=== PATIENT | female | born 1975 | race Caucasian/White ===

== ENCOUNTER 2016-06-24 12:23 | Emergency (ER) | payer OTHER ==
[~2016-06-24] VITALS: Ht 175.3 cm; Wt 147.4 kg
[~2016-06-24 12:23] MED LIST: ALBUTEROL 3 ML3 ML INH; ALBUTEROL SULFAT3 M1 INH; ALPRAZOLAM2 MG PO; AMOXIL500 MG PO; ATROVENT 0.02%2.5 ML INH; AUGMENTIN 875-1 EACH PO; BIAXIN FILMTAB500 MG PO; CHERATUSSIN AC480 ML PO; DUONEB 3 MG/3 ML3 ML INH/SOL; FISH OIL CONCEN1 SGL PO; FLONASE120 SPRAY/ NASB; GLUCOPHAGE1000 M1 PO; HYOSCYAMINE0.125 M2; IBU800 MG PO; IBUPROFEN800 MG PO; LEVAQUIN500 MG PO; LEVSIN/SL0.125 MG SL; LIPITOR40 M1 PO; LISINOPRIL40 MG PO; MULTIPLE VITAM1 EAC2 PO; NYSTOP100000 U/G TOP; OXYCODONE HCL30 MG PO; PREDNISOLO15 MG/5 M4 PO; PREDNISONE10 MG PO; PROAIR HFA0.09 MG/Ac INH; ROBITUSSIN W/CO10 ML PO; TOPROL XL200 MG PO; ZITHROMAX TRI-500 MG PO; ZOFRAN4 M1 SL
--- NOTE | 2016-06-24 12:59 | ED GENERAL ADULT ---
History of Present Illness General Chief Complaint: General Adult Stated Complaint: "UM MY DOCTOR STOP GIVING ME PAIN PILLS" Source: patient, old records Exam Limitations: no limitations Vital Signs & Intake/Output Vital Signs & Intake/Output Vital Signs Date Time Temp Pulse Resp B/P Pulse O2 O2 Flow FiO2 Ox Delivery Rate 06/24 1444 97.2 80 21 158/79 93 Room Air 06/24 1350 95 06/24 1331 98 Room Air 06/24 1230 97.0 76 20 163/81 94 Room Air ED Intake and Output 06/25 0000 06/24 1200 Intake Total 120 Output Total Balance 120 Intake, IV 0 Intake, Oral 120 Patient 325 lb Weight Allergies Coded Allergies: clarithromycin (From Biaxin) (Severe, HIVES ON TONGUE AND BACK OF THROAT ) cefaclor (BAD STOMACH PAIN 04/05/16) ciprofloxacin (From Cipro) (BAD STOMACH PAIN 04/05/16) Reconcile Medications Albuterol Sulfate (Proair Hfa) 0.09 MG/Actuation DAFNE 2 PUFF INH PRN ASTHMA- SEASONAL (Reported) Albuterol Sulfate 3 ML NEB 1 UNIT INH Q6P PRN WHEEZE Albuterol Sulfate (Proventil) 2.5 MG/3 ML NEB 3 ML INH EVERY 4 HRS/AWAKE SHORTNESS OF BREATH Alprazolam 2 MG TABLET 1 TAB PO TID PRN ANXIETY (Reported) Amoxicillin/Potassium Clav (Augmentin 875-125 Tablet) 875 MG-125 MG TABLET 1 TAB PO BID BRONCHITIS Amoxicillin/Potassium Clav (Augmentin 875-125 Tablet) 875 MG-125 MG TABLET 1 TAB PO BID pneumonia Atorvastatin Calcium (Lipitor) 40 MG TABLET 1 TAB PO DAILY CHOLESTEROL ( Reported) Azithromycin (Zithromax Tri-Adelfo) 500 MG TAB 1 TAB PO DAILY BRONCHITIS Diazepam (Valium) 5 MG TABLET 1 TAB PO BIDP PRN muscle spasms Fluticasone Propionate (Flonase) 120 SPRAY/BOT SPR 2 SPRAY NASB DAILY nasal allergies Ibuprofen 800 MG TABLET 1 TAB PO BID PRN PAIN/HEADACHES (Reported) Ipratropium Ozan 2.5 ML NEB 2.5 ML INH EVERY 4 HRS/AWAKE SHORTNESS OF BREATH Lisinopril 40 MG TABLET 1 TAB PO DAILY BP (Reported) METFORMIN HCL (Metformin) 1,000 MG TABLET 1 TAB PO BID DIABETES (Reported) Metoprolol Succinate (Toprol XL) [address] 0[address]5 TAB PO DAILY HEART (Reported) Multivitamin (Multiple Vitamins) 1 EACH TABLET 1 TAB PO DAILY SUPPLEMENT ( Reported) OXYCODONE HCL (Oxycodone HCl) 30 MG TABLET 1 TAB PO Q6H PRN PAIN (Reported) Oxycodone HCl (Roxicodone) 30 MG TABLET 1 TAB PO Q6P PRN pain Prednisolone 15 MG/5 ML SOLUTION 10 ML PO QDAY ASTHMA Robitussin AC (Guaifenesin-Codeine Syrup) 10 ML UDC 5 ML PO Q6 COUGH Triage Note: PT STATES DR RIVERA STOPPED GIVING HER PAIN MEDS AND SHE IS SUPPOSED TO START AT THE PAIN CLINIC AT [facility] BUT THEY HAVEN'T CALLED HER YET. STATES SHE IS SICK Triage Nurses Notes Reviewed? yes Onset: Gradual Duration: day(s): (2-3) Timing: remote history Injury Environment: home Severity: moderate Severity Numbers: 6 No Modifying Factors: none : No Patient currently breastfeeds: No HPI: pt is a 41-year-old female with history of COPD, obesity, chronic pain presenting to the emergency department with chief complaint of "my doctor won't give me pain medication any longer. Patient reports that she ran out a few days ago. She is currently trying to get into pain management but was told it might be a few weeks. Denies any injury. She does report increasing leg pain. She also noticed some increasing swelling bilaterally. She reports that when she does not take her pain medication she gets more short of breath. She uses inhalers at home daily. She took it this morning. She is still smoking. Denies any fevers or chills nausea vomiting or chest pain. Denies specific shortness of breath but feels like she is wheezing. Denies any history of CHF. She does take "water pills". She has not taken them in a few days because "she didn't feel like it". Denies any recent travel. (ESTHELA JUAREZ) Past History Travel History Traveled to [place] past 21 day No Medical History Any Pertinent Medical History? 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 No (ESTHELA JUAREZ) Review of Systems Review of Systems Constitutional: Reports: no symptoms. Comments Review of systems: See HPI, All other systems negative. Constitutional, no chills fever or weight loss HEENT: No visual changes no sore throat no congestion Cardiovascular: No chest pain ,palpitation , orthopnea or ankle swelling Skin, no jaundice no rashes Respiratory: No cough sputum or hemoptysis GI: No nausea no vomiting : No dysuria No hematuria Muscle skeletal: Positive chronic back pain, no neck pain, Neurologic: No numbness no confusion Psych: No stress anxiety Immunology: No splenectomy or history of AIDS (ESTHELA JUAREZ) Physical Exam Physical Exam General Appearance: no apparent distress, alert, comfortable, obese Comments: Obese person in no acute distress HEENT: Pupils equally round and reactive to light and accommodation. Nose is atraumatic. External auditory canal and Tympanic membranes clear. Pharynx normal. No swelling or edema. Neck: Supple, no lymphadenopathy, normal range of motion without pain or tenderness Back: Tender to palpation in the lumbar paraspinal muscles. No bony tenderness to palpation throughout entire spine. No CVA tenderness bilaterally. Cardiovascular: Regular rate and rhythms no murmurs rubs or gallops, normal JVP Respiratory: Chest nontender. No respiratory distress.diffuse wheezing to auscultation bilaterally Extremity: One plus pitting edema lower showings bilaterally, no calf tenderness to palpation. Pedal pulses are 2+ bilaterally. Neuro: Alert oriented x3 Skin: No appreciable rash on exposed skin, skin is warm and dry. Psych: Mood and affect is normal, memory and judgment is normal. Core Measures ACS in differential dx? No CVA/TIA Diagnosis: No Severe Sepsis Present: No Septic Shock Present: No (ESTHELA JUAREZ) Progress Differential Diagnoses I considered the following diagnoses in my evaluation of the patient: COPD exacerbation, medication refill, chronic pain, liver failure, dependent edema, medication noncompliance Plan of Care: Orders Procedure Date/time Status COMPREHENSIVE METABOLIC PANEL 06/24 1258 Complete CBC WITHOUT DIFFERENTIAL 06/24 1258 Complete Laboratory Tests 06/24/16 1335: Anion Gap 9, Estimated GFR > 60, BUN/Creatinine Ratio 13.3, Glucose 76, Calcium 8.7, Total Bilirubin 0.9, AST 17, ALT 31, Alkaline Phosphatase 63, Total Protein 6.4, Albumin 3.6, Globulin 2.8, Albumin/Globulin Ratio 1.3, CBC w Diff NO MAN DIFF REQ, RBC 6.85 H, MCV 71.4 L, MCH 21.8 L, RDW 22.1 H, MPV 9.1, Gran % 72.3, Lymphocytes % 18.5 L, Monocytes % 6.8, Eosinophils % 2.0, Basophils % 0.4 , Absolute Granulocytes 8.5 H, Absolute Lymphocytes 2.2, Absolute Monocytes 0.8 H, Absolute Eosinophils 0.2, Absolute Basophils 0, PUBS MCHC 30.5 L Diagnostic Imaging: Viewed by Me: Radiology Read. Discussed w/RAD: Radiology Read. Radiology Impression: PATIENT: PRIYA GILES PRESENT AGE: 41 PATIENT ACCOUNT NO: [id number] : 76 LOCATION: [facility] ORDERING PHYSICIAN: ESTHELA PAZ SERVICE DATE: 06/24/16 EXAM TYPE: RAD - XRY-CHEST XRAY, PA AND LATERAL EXAMINATION: XR CHEST CLINICAL INFORMATION: Evaluate for CHF/pneumonia COMPARISON: Multiple chest x-rays most recent prior dated 04/05/2016 TECHNIQUE: 2 views of the chest were obtained. FINDINGS: Cardiomegaly small right-sided pleural effusion with associated infiltrate or atelectasis. Somewhat similar appearance seen on the prior examination. Linear atelectatic change noted again in the right upper lobe. Left lung is clear. Bony thorax is intact. IMPRESSION: Opacity noted in the right lateral base likely represents effusion with associated infiltrate or atelectasis. Initial ED EKG: none Comments: 06/24/2016 1:42:49 PM arrival patient's vitals are stable, she does have diffuse wheezing on exam. She will receive a DuoNeb treatment. Patient does have left hicks edema bilaterally without calf pain. Likely chronic in nature we will assess a CBC, CMP. Patient is supposed take her Lasix and has not taken it. No calf pain. I do not think this patient has a a blood clot. Patient will go for a chest x-ray to rule out pneumonia/cardiomegaly/pleural effusion. Patient does have wheezing on exam, likely COPD exacerbation. Patient also given dose of pain medication on arrival. Patient is not currently in pain management, requesting refill of medications until she can get into pain management. It is explained to her that the emergency department can only fill medications for a short period of time and it is important to follow with pain management. 06/24/2016 2:25:06 PM patient informed of all lab work results and x-ray findings. X-ray similar to previous although patient has COPD and was wheezy. We will treat for COPD exacerbation. Patient has no trouble taking Augmentin. pcp follow up. moving better air. (ESTHELA JUAREZ) Departure Departure Time of Disposition: 1420 Disposition: HOME OR SELF CARE Condition: Stable Clinical Impression Primary Impression: Medication refill Secondary Impressions: Chronic pain Qualifiers: Chronic pain type: other chronic pain Qualified Code: G89.29 - Other chronic pain COPD (chronic obstructive pulmonary disease) Leg edema Qualifiers: Laterality: bilateral Qualified Code: R60.0 - Localized edema Referrals: ROMAN YOON,JOYCE Stringer (PCP/Family) Additional Instructions: Follow-up with your primary care physician called an appointment. Take Augmentin as prescribed. Continue using inhalers. Take pain medication and muscle relaxer as prescribed. Return for worsening symptoms or concerns. Departure Forms: Customer Survey General Discharge Information Prescriptions: Current Visit Scripts Amoxicillin/Potassium Clav (Augmentin 875-125 Tablet) 1 TAB PO BID #20 TAB Oxycodone HCl (Roxicodone) 1 TAB PO Q6P PRN pain #10 TAB Diazepam (Valium) 1 TAB PO BIDP PRN muscle spasms #10 TAB (ESTHELA JUAREZ) PA/HIGH SCHOOL COMPUTER SCIENCE TEACHER Co-Sign Statement Statement: ED Attending supervision documentation- [] I saw and evaluated the patient. I have also reviewed all the pertinent lab results and diagnostic results. I agree with the findings and the plan of care as documented in the PA's/HIGH SCHOOL COMPUTER SCIENCE TEACHER's documentation. [X] I have reviewed the ED Record and agree with the PA's/HIGH SCHOOL COMPUTER SCIENCE TEACHER's documentation. [] Additions or exceptions (if any) to the PAs/HIGH SCHOOL COMPUTER SCIENCE TEACHER's note and plan are summarized below: [] (SHANDRA YOON,MORTEZA) Critical Care Note Critical Care Note Critical Care Time: non-applicable (CRISTINE PAZ,ESTHELA)
[2016-06-24 13:46] LABS: ABSOLUTE BASOPHIL COUNT 0 /CUMM (0.0-0.2); ABSOLUTE EOSINOPHIL COUNT 0.2 /CUMM (0.0-0.7); ABSOLUTE GRANULOCYTE CT 8.5 /CUMM (1.4-6.5); ABSOLUTE LYMPH COUNT 2.2 /CUMM (1.2-3.4); ABSOLUTE MONOCYTE COUNT 0.8 /CUMM (0.10-0.60); BASOPHIL % 0.4 % (0.0-2.0); GRANULOCYTE % 72.3 % (42.2-75.2); MEAN CORPUSCULAR HGB 21.8 PG (27.0-31.0); MEAN CORPUSCULAR HGB CONC 30.5 G/DL (33.0-37.0); MEAN CORPUSCULAR VOLUME 71.4 FL (81.0-99.0); MEAN PLATELET VOLUME 9.1 FL (7.4-10.4); PLATELET COUNT 210 /CUMM (130-400); RBC DISTRIBUTION WIDTH 22.1 % (11.5-14.5); RED BLOOD CELL CT 6.85 /CUMM (4.20-5.40); WHITE BLOOD CELL COUNT 11.7 /CUMM (4.8-10.8)
--- NOTE | 2016-06-24 13:56 | RADIOLOGY REPORT ---
EXAMINATION: XR CHEST CLINICAL INFORMATION: Evaluate for CHF/pneumonia COMPARISON: Multiple chest x-rays most recent prior dated 04/05/2016 TECHNIQUE: 2 views of the chest were obtained. FINDINGS: Cardiomegaly small right-sided pleural effusion with associated infiltrate or atelectasis. Somewhat similar appearance seen on the prior examination. Linear atelectatic change noted again in the right upper lobe. Left lung is clear. Bony thorax is intact. IMPRESSION: Opacity noted in the right lateral base likely represents effusion with associated infiltrate or atelectasis.
[2016-06-24] MEDS ORDERED: VALIUM5 M2 PO (14:23)
[2016-06-24] MEDS ORDERED: AUGMENTIN 875-1 EACH PO (14:23)
[2016-06-24] MEDS ORDERED: ROXICODONE30 M1 PO (14:23)
[2016-06-24 14:44] VITALS: BP 158/79
== END 2016-06-24 14:52 ==
LOC: ERH 12:23
PROVIDERS: Physician Assistant
DX: Z76.0 Encounter for issue of repeat prescription (principal); G89.29 Other chronic pain; J44.9 Chronic obstructive pulmonary disease, unspecified; R60.0 Localized edema; Z72.0 Tobacco use
CPT/HCPCS: 1263

== ENCOUNTER 2016-06-28 11:57 | Emergency (ER) | payer OTHER ==
[~2016-06-28] VITALS: Ht 175.3 cm; Wt 147.0 kg
[~2016-06-28 11:57] MED LIST changes: +ROXICODONE30 M1 PO; +VALIUM5 M2 PO
[2016-06-28 12:01] VITALS: BP 186/82
[2016-06-28] MEDS ORDERED: ALBUTEROL2.5 MG/3 M INH/SOL (12:45)
[2016-06-28] MEDS ORDERED: PROAIR HFA8.5 GM INH (12:45)
[2016-06-28] MEDS ORDERED: LISINOPRIL40 M1 PO (12:47)
[2016-06-28] MEDS ORDERED: CARVEDILOL25 M1 PO (12:48)
[2016-06-28] MEDS ORDERED: IBUPROFEN800 M1 PO (12:49)
[2016-06-28] MEDS ORDERED: OXYCODONE HCL30 M1 PO (13:43)
--- NOTE | 2016-06-28 13:44 | ED GENERAL ADULT ---
History of Present Illness General Chief Complaint: General Adult Stated Complaint: REQ PAIN MEDS Source: patient, family, old records Exam Limitations: no limitations Vital Signs & Intake/Output Vital Signs & Intake/Output Vital Signs Date Time Temp Pulse Resp B/P Pulse O2 O2 Flow FiO2 Ox Delivery Rate 06/28 1341 Room Air Room Air 06/28 1201 99.0 74 20 186/82 92 Room Air Allergies Coded Allergies: clarithromycin (From Biaxin) (Severe, HIVES ON TONGUE AND BACK OF THROAT ) cefaclor (BAD STOMACH PAIN 04/05/16) ciprofloxacin (From Cipro) (BAD STOMACH PAIN 04/05/16) Triage Note: PT HERE FOR A PRESCRIPTION FOR ROXYCODONE 30MG PT STATES DR. LUCIANO HAD HIS [place]OL SUBSTANCE LICENSE REVOKED. Triage Nurses Notes Reviewed? yes : No Patient currently breastfeeds: No HPI: 41-year-old woman seen for evaluation requesting a refill on her narcotic pain medications. She was previously prescribed oxycodone 30 mg 180 tablets for [address] Ordoñez for her multiple pain complaints, last prescription picked up on 05/17/16. She states that Dr. Ordoñez reportedly lost his controlled substance prescribing privileges and will no longer fill her medications. She was referred to establish care with a chronic pain management clinic, however has not establish an appointment yet. She has had her records faxed over to the pain management center at [facility], but however has not pursued other places such as [place] or [place]. She was previously seen at the [facility] ED on 06/24/16 and was provided a short prescription of oxycodone 30 mg quantity of 10 tablets with further encouragement to follow-up with the pain management center for further prescribing. (BRIDGET YOON,AMBREEN) Reconcile Medications Albuterol Sulfate 2.5 MG/3 ML (0.083 %) VIAL.NEB 1 Vial INH/STEVENSON Q4P PRN RESPIRATORY (Reported) Albuterol Sulfate (Proair Hfa) 90 MCG HFA.AER.AD 2 PUF INH PRN RESPIRATORY ( Reported) Amoxicillin/Potassium Clav (Augmentin 875-125 Tablet) 875 MG-125 MG TABLET 1 TAB PO BID pneumonia Atorvastatin Calcium (Lipitor) 40 MG TABLET 1 TAB PO DAILY CHOLESTEROL ( Reported) Carvedilol 25 MG TABLET 0.5 TAB PO BID HEART/BP (Reported) Diazepam (Valium) 5 MG TABLET 1 TAB PO BIDP PRN muscle spasms Ibuprofen 800 MG TABLET 1 TAB PO TID PAIN (Reported) Lisinopril 40 MG TABLET 1 TAB PO DAILY BP (Reported) Metformin HCl (Glucophage) 1,000 MG TABLET 1 TAB PO BID DM (Reported) Multivitamin (Multiple Vitamins) 1 EACH TABLET 1 TAB PO DAILY SUPPLEMENT ( Reported) Oxycodone HCl (Roxicodone) 30 MG TABLET 1 TAB PO Q6P PRN pain Oxycodone HCl 30 MG TABLET 1 TAB PO Q4H PRN PAIN (BHAVYA RIZVI MD) Past History Travel History Traveled to [place] past 21 day No Medical History Any Pertinent Medical History? 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 No (AMBREEN GILL MD) Review of Systems Review of Systems Constitutional: Reports: see HPI. (AMBREEN GILL MD) Review of Systems Constitutional: Reports: no symptoms. EENTM: Reports: no symptoms. Respiratory: Reports: no symptoms. Cardiovascular: Reports: no symptoms. GI: Reports: no symptoms. Genitourinary: Reports: no symptoms. Musculoskeletal: Reports: see HPI. Skin: Reports: no symptoms. Neurological/Psychological: Reports: no symptoms. Hematologic/Endocrine: Reports: no symptoms. Immunologic/Allergic: Reports: no symptoms. All Other Systems: Reviewed and Negative (BHAVYA RIZVI MD) Physical Exam Physical Exam General Appearance: well developed/nourished, alert, awake, anxious, mild distress Comments: General - well developed, tearful anxious middle aged woman in mild distress HEENT - NCAT, PERRL, EOMI, anicteric sclera Cardio - S1, S2 w/o murmurs/gallops/rubs Resp - CTA bilaterally w/o wheezing/rhochi/crackles GI - soft, nontender, nondistended, bowel sounds present Neuro - Awake and alert, CN II - XII grossly intact Extremities - no edema, pulses intact Core Measures ACS in differential dx? No CVA/TIA Diagnosis: No Severe Sepsis Present: No Septic Shock Present: No (AMBREEN GILL MD) Progress Differential Diagnoses I considered the following diagnoses in my evaluation of the patient: opiate dependence Plan of Care: Current Medications Sig/Brandon Start time Last Medication Dose Stop Time Status Admin Oxycodone HCl 30 MG ONCE ONE 06/28 1344 UNVr (Roxicodone) 06/28 1345 [place] prescription monitoring program checked and assessed for patients prior prescribing. She has been receiving oxycodone 30 mg by mouth every [address] Neves monthly for an extended amount of time. 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 She was instructed that the comprehensive headache and pain management Center of [facility] does not contact take her insurance and she should seek to establish care at another facility by having her records since these facilities and following up with them to he can appointment. She verbalized agreement to this and will do this as soon as possible. She is to be provided a short prescription of narcotic pain medication on discharge. (AMBREEN GILL MD) Initial ED EKG: none (AMBREEN GILL MD) Differential Diagnoses I considered the following diagnoses in my evaluation of the patient: (DMITRI YOON,BHAVYA) Departure Departure Disposition: HOME OR SELF CARE Condition: Stable Clinical Impression Primary Impression: Opiate dependence Qualifiers: Substance use status: in withdrawal Qualified Code: F11.23 - Opioid dependence with withdrawal Secondary Impressions: Medication refill Referrals: JOYCE OWENS MD (PCP/Family) Additional Instructions: Follow-up with your primary care provider after discharge for further evaluation and referral to a chronic pain management Center. You have been provided a prescription for a short dose of narcotic pain medication to cover you until you can establish care with one of these new providers. Departure Forms: Customer Survey General Discharge Information Prescriptions: Current Visit Scripts Oxycodone HCl 1 TAB PO Q4H PRN PAIN #10 TAB (AMBREEN GILL MD) Resident Co-Sign Statement Statement: ED Attending supervision documentation- x I saw and evaluated the patient. I have also reviewed all the pertinent lab results and diagnostic results. I agree with the findings and the plan of care as documented in the Resident's documentation. [] I have reviewed the ED Record and agree with the Resident's documentation. [] Additions or exceptions (if any) to the Resident's note and plan are summarized below: [] (DMITRI YOON,BHAVYA) Critical Care Note Critical Care Note Critical Care Time: non-applicable (AMBREEN GILL MD)
== END 2016-06-28 13:50 ==
LOC: ERH 11:57
DX: F11.20 Opioid dependence, uncomplicated (principal); Z76.0 Encounter for issue of repeat prescription

== ENCOUNTER 2016-07-02 18:03 | Emergency (ER) | payer OTHER ==
[~2016-07-02] VITALS: Ht 175.3 cm; Wt 147.4 kg
[~2016-07-02 18:03] MED LIST changes: +ALBUTEROL2.5 MG/3 M INH/SOL; +CARVEDILOL25 M1 PO; +IBUPROFEN800 M1 PO; +LISINOPRIL40 M1 PO; +OXYCODONE HCL30 M1 PO; +PROAIR HFA8.5 GM INH
[2016-07-02] MEDS ORDERED: ROXICODONE30 M1 PO (20:58)
--- NOTE | 2016-07-02 21:01 | ED GENERAL ADULT ---
History of Present Illness General Chief Complaint: General Adult Stated Complaint: BODY PAIN,DIARRHEA,PALPITATIONS Source: patient Exam Limitations: no limitations Vital Signs & Intake/Output Vital Signs & Intake/Output Vital Signs Date Time Temp Pulse Resp B/P Pulse O2 O2 Flow FiO2 Ox Delivery Rate 07/02 2009 Room Air 07/02 1853 97.0 75 20 172/82 86 Room Air Allergies Coded Allergies: clarithromycin (From Biaxin) (Severe, HIVES ON TONGUE AND BACK OF THROAT ) cefaclor (BAD STOMACH PAIN 07/02/16) ciprofloxacin (From Cipro) (BAD STOMACH PAIN 07/02/16) Reconcile Medications Albuterol Sulfate 2.5 MG/3 ML (0.083 %) VIAL.NEB 1 Vial INH/STEVENSON Q4P PRN RESPIRATORY (Reported) Albuterol Sulfate (Proair Hfa) 90 MCG HFA.AER.AD 2 PUF INH PRN RESPIRATORY ( Reported) Amoxicillin/Potassium Clav (Augmentin 875-125 Tablet) 875 MG-125 MG TABLET 1 TAB PO BID pneumonia Atorvastatin Calcium (Lipitor) 40 MG TABLET 1 TAB PO DAILY CHOLESTEROL ( Reported) Carvedilol 25 MG TABLET 0.5 TAB PO BID HEART/BP (Reported) Diazepam (Valium) 5 MG TABLET 1 TAB PO BIDP PRN muscle spasms Ibuprofen 800 MG TABLET 1 TAB PO TID PAIN (Reported) Lisinopril 40 MG TABLET 1 TAB PO DAILY BP (Reported) Metformin HCl (Glucophage) 1,000 MG TABLET 1 TAB PO BID DM (Reported) Multivitamin (Multiple Vitamins) 1 EACH TABLET 1 TAB PO DAILY SUPPLEMENT ( Reported) Oxycodone HCl (Roxicodone) 30 MG TABLET 1 TAB PO Q6P PRN PAIN Oxycodone HCl (Roxicodone) 30 MG TABLET 1 TAB PO Q6P PRN pain Oxycodone HCl 30 MG TABLET 1 TAB PO Q4H PRN PAIN Triage Note: TRIAGE: PT TO ER C/C BODY PAIN, DIARRHEA AND PALPITATIONS. REQUESTING REFILL OF ROXICODONE, FEELS LIKE SHE IS GOING THROUGH WITHDRAWAL. RAN OUT OF ROXICODONE 1/2 TAB 04:00. STATES SHE WAS TAKING 5/DAY BUT HER DOCTOR MIGUEL GOT HIS CONTROLLED SUBSTANCE LICENSE REVOKED AND CAN'T REFILL HER PRESCRIPTION. STATES HER PAPERWORK WAS SENT TO [facility]AR [facility]. PT PMHX COPD, STATES USUALLY HAS SATS 90% BUT SATS 86-88% AT TRIAGE. STATES HER BREATHING "FEELS A LITTLE TIGHT" AND THAT SHE "COULD PROBABLY USE A TREATMENT". Triage Nurses Notes Reviewed? yes : No Patient currently breastfeeds: No HPI: Patient presents for evaluation of severe neck back and diffuse body pain secondary to history of chronic neck and back pain, rheumatoid arthritis and degenerative joint disease. She has been out of her pain medication because her primary care doctor can no longer prescribe it. She now feels she is experiencing withdrawal symptoms including pain diarrhea and heart palpitations. Symptoms are described as severe, constant (aside from the diarrhea) and aching. Past History Travel History Traveled to [place] past 21 day No Medical History Any Pertinent Medical History? 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 No Review of Systems Review of Systems Constitutional: Reports: no symptoms. EENTM: Reports: no symptoms. Respiratory: Reports: no symptoms. Cardiovascular: Reports: no symptoms. GI: Reports: see HPI. Genitourinary: Reports: no symptoms. Musculoskeletal: Reports: no symptoms. Skin: Reports: no symptoms. Neurological/Psychological: Reports: no symptoms. Hematologic/Endocrine: Reports: no symptoms. Immunologic/Allergic: Reports: no symptoms. All Other Systems: Reviewed and Negative Physical Exam Physical Exam General Appearance: SEE BELOW Comments: Gen.: Well-nourished, well-developed, no acute respiratory distress. Mildly uncomfortable appearing. Head: Normocephalic, atraumatic. Eyes: Normal inspection bilaterally Ears: Normal inspection bilaterally Nose: Normal inspection Throat/mouth : Moist mucosa Neck: Supple, full range of motion, no goiter Heart: Regular rate and rhythm, no murmurs rubs or gallops Lungs: Clear to auscultation bilaterally with normal air entry Chest: Nontender Back: Normal range of motion Abdomen: Soft, nontender, nondistended, normal bowel sounds Extremities: Normal range of motion grossly, equal radial pulses, no cyanosis clubbing or edema Neurologic: Cranial nerves grossly intact, speech is clear Skin: warm and dry Psychiatric: Calm, cooperative, no apparent delusions or hallucinations Core Measures ACS in differential dx? No CVA/TIA Diagnosis: No Severe Sepsis Present: No Septic Shock Present: No Progress Differential Diagnoses I considered the following diagnoses in my evaluation of the patient: Viral syndrome, opiate withdrawal Plan of Care: Orders Procedure Date/time Status EKG 07/02 1804 Active Current Medications Sig/Brandon Start time Last Medication Dose Stop Time Status Admin Hydromorphone HCl 2 MG ONCE ONE 07/02 2099 UNVr (Dilaudid) 07/02 2100 Initial ED EKG: none Departure Departure Disposition: HOME OR SELF CARE Condition: Stable Clinical Impression Primary Impression: Narcotic withdrawal Secondary Impressions: Chronic pain Qualifiers: Chronic pain type: chronic pain syndrome Qualified Code: G89.4 - Chronic pain syndrome Referrals: ROMAN YOON,JOYCE Stringer (PCP/Family) Additional Instructions: Follow through with the pain management appointment as scheduled. Notify your primary care doctor this emergency department visit and treatment plan. Return if any concerns or sudden worsening. Departure Forms: Customer Survey General Discharge Information Prescriptions: Current Visit Scripts Oxycodone HCl (Roxicodone) 1 TAB PO Q6P PRN PAIN #12 TAB Critical Care Note Critical Care Note Critical Care Time: non-applicable
[2016-07-02 21:05] VITALS: BP 168/74
== END 2016-07-02 21:06 ==
LOC: ERH 18:03
DX: F11.23 Opioid dependence with withdrawal (principal); G89.29 Other chronic pain
CPT/HCPCS: 93005; 93010; 96372

== ENCOUNTER 2016-07-06 18:16 | Emergency (ER) | payer OTHER ==
[~2016-07-06] VITALS: Ht 175.3 cm; Wt 149.7 kg
[2016-07-06] MEDS ORDERED: ROXICODONE30 M1 PO (19:52)
--- NOTE | 2016-07-06 19:54 | ED GENERAL ADULT ---
History of Present Illness General Chief Complaint: General Adult Stated Complaint: MED REFILLS Source: patient Exam Limitations: no limitations Vital Signs & Intake/Output Vital Signs & Intake/Output Vital Signs Date Time Temp Pulse Resp B/P Pulse O2 O2 Flow FiO2 Ox Delivery Rate 07/07 2027 98.3 63 18 158/74 96 07/07 1827 97.2 68 20 166/89 90 Room Air Room Air Allergies Coded Allergies: clarithromycin (From Biaxin) (Severe, HIVES ON TONGUE AND BACK OF THROAT ) cefaclor (BAD STOMACH PAIN 07/02/16) ciprofloxacin (From Cipro) (BAD STOMACH PAIN 07/02/16) Reconcile Medications Albuterol Sulfate 2.5 MG/3 ML (0.083 %) VIAL.NEB 1 Vial INH/STEVENSON Q4P PRN RESPIRATORY (Reported) Albuterol Sulfate (Proair Hfa) 90 MCG HFA.AER.AD 2 PUF INH PRN RESPIRATORY ( Reported) Amoxicillin/Potassium Clav (Augmentin 875-125 Tablet) 875 MG-125 MG TABLET 1 TAB PO BID pneumonia Atorvastatin Calcium (Lipitor) 40 MG TABLET 1 TAB PO DAILY CHOLESTEROL ( Reported) Carvedilol 25 MG TABLET 0.5 TAB PO BID HEART/BP (Reported) Diazepam (Valium) 5 MG TABLET 1 TAB PO BIDP PRN muscle spasms Ibuprofen 800 MG TABLET 1 TAB PO TID PAIN (Reported) Lisinopril 40 MG TABLET 1 TAB PO DAILY BP (Reported) Metformin HCl (Glucophage) 1,000 MG TABLET 1 TAB PO BID DM (Reported) Multivitamin (Multiple Vitamins) 1 EACH TABLET 1 TAB PO DAILY SUPPLEMENT ( Reported) Oxycodone HCl (Roxicodone) 30 MG TABLET 1 TAB PO Q6P PRN PAIN Oxycodone HCl (Roxicodone) 30 MG TABLET 1 TAB PO Q6P PRN pain Oxycodone HCl (Roxicodone) 30 MG TABLET 1 TAB PO Q6P PRN pain Oxycodone HCl 30 MG TABLET 1 TAB PO Q4H PRN PAIN Triage Note: PT TO ED FOR PAIN PILL REFILL, DR ORDOÑEZ UNABLE TO FILL SCRIPT, HAS APPT AT [facility] ON MONDAY. ROXICODONE 30MG EVERY 4 HOURS. Triage Nurses Notes Reviewed? yes Onset: Abrupt Timing: chronic Injury Environment: home No Modifying Factors: none : No Patient currently breastfeeds: No HPI: 41-year-old female comes into emergency room requesting a refill on her pain medication. Patient reports that she recently was cut off from Dr. Ordoñez because he can no longer prescribe the medication has been on it for a long time. Patient takes it for her chronic back pain. Patient reports that her oxygen level is always low in between 90 and 92 is good for her. Patient denies any other associated symptoms. Pain is chronic and unchanged for her. Patient has a history of arthritis and degenerative disc disease. Patient also complaining of fluids to her left ear which is chronic for her in nature. Patient's (HE HALLMAN) Past History Travel History Traveled to [place] past 21 day No Medical History Any Pertinent Medical History? 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 No (HE HALLMAN) Review of Systems Review of Systems Constitutional: Reports: no symptoms. EENTM: Reports: no symptoms. Respiratory: Reports: no symptoms. Cardiovascular: Reports: no symptoms. GI: Reports: no symptoms. Genitourinary: Reports: no symptoms. Musculoskeletal: Reports: see HPI. Skin: Reports: no symptoms. Neurological/Psychological: Reports: no symptoms. Hematologic/Endocrine: Reports: no symptoms. Immunologic/Allergic: Reports: no symptoms. All Other Systems: Reviewed and Negative (HE HALLMAN) Physical Exam Physical Exam General Appearance: well developed/nourished, alert Head: atraumatic, normal appearance Eyes: Bilateral: normal appearance. Ears, Nose, Throat: normal ENT inspection, hearing grossly normal Neck: normal inspection Respiratory: normal breath sounds, no respiratory distress Back: normal inspection Extremities: normal inspection, normal range of motion Neurologic/Psych: no motor/sensory deficits Skin: intact, normal color Core Measures ACS in differential dx? No CVA/TIA Diagnosis: No Severe Sepsis Present: No Septic Shock Present: No (HE HALLMAN) Progress Differential Diagnoses I considered the following diagnoses in my evaluation of the patient: Arthritis , degenerative disc disease, chronic pain, otitis media, otitis externa, Plan of Care: 07/06/2016 8:20:46 PM Patient given 12 tabs. Patient needs to follow-up with pain management. Return if any other concerns. Chronic low oxygen level the patient reports and this is normal for her. She does not appear to be in any type of respiratory distress. Patient can follow-up with her primary care doctor as needed. Initial ED EKG: none (HE HALLMAN) Departure Departure Disposition: HOME OR SELF CARE Condition: Stable Clinical Impression Primary Impression: Chronic pain Secondary Impressions: Medication refill Referrals: JOYCE OWENS MD (PCP/Family) Additional Instructions: Take roxycodone as prescribed. Follow-up with your pain management doctor as already scheduled. Return if any concerns worsening symptoms. Please go over all results of today's visit with your primary care doctor. Contact your primary care doctor to let them know you were here in the emergency room. There may be nonspecific findings which may not be related to your visit today here in the emergency room but may require further evaluation and chronic monitoring by your primary care doctor. If you had a laceration today the chance of foreign body always remains. You should follow-up with your primary care doctor for recheck in 3-5 days for a wound check. If you had an x-ray done there is a chance that a fracture could have been missed on initial read and you should follow-up with your primary care doctor for repeat x-rays if symptoms persist. If your blood pressure was elevated here in the emergency room please have rechecked by her primary care doctor within the next 48 hours by your primary care doctor. If you were prescribed a narcotic here in the emergency room or any type of controlled substances you're not allowed to drive while taking this medication or operate any type of heavy machinery. Narcotics can make you feel lightheaded dizziness nausea and can cause constipation. You may need to fruit or nut picker a stool softener. Thank you for choosing [facility] emergency room. Please return to the emergency room immediately if you have any other concerns worsening of symptoms. Departure Forms: Customer Survey General Discharge Information Prescriptions: Current Visit Scripts Oxycodone HCl (Roxicodone) 1 TAB PO Q6P PRN pain #12 TAB (HE HALLMAN) PA/RESIDENTIAL GAS HEAT TECHNICIAN Co-Sign Statement Statement: ED Attending supervision documentation- [] I saw and evaluated the patient. I have also reviewed all the pertinent lab results and diagnostic results. I agree with the findings and the plan of care as documented in the PA's/RESIDENTIAL GAS HEAT TECHNICIAN's documentation. [X] I have reviewed the ED Record and agree with the PA's/RESIDENTIAL GAS HEAT TECHNICIAN's documentation. [] Additions or exceptions (if any) to the PAs/RESIDENTIAL GAS HEAT TECHNICIAN's note and plan are summarized below: [] (NABEEL MORATAYA DO) Critical Care Note Critical Care Note Critical Care Time: non-applicable (HE HALLMAN) ED Attending Observation Initial Observation Note: I have seen and personally examined PRIYA GILES on 07/06/16 at 2020. I agree with the current emergency department documentation. The disposition (admission or discharge) is uncertain at this time, she needs a period of observation for the following reason(s): The ED Nurse caring for this patient has been personally informed as to what the patient is being observed for. (HE HALLMAN)
[2016-07-06 20:28] VITALS: BP 158/74
== END 2016-07-06 20:30 ==
LOC: ERH 18:16
DX: G89.29 Other chronic pain (principal); Z76.0 Encounter for issue of repeat prescription
CPT/HCPCS: 99281

== ENCOUNTER 2016-07-09 19:03 | Emergency (ER) | payer OTHER ==
[~2016-07-09] VITALS: Ht 175.3 cm; Wt 145.2 kg
--- NOTE | 2016-07-09 19:52 | ED GENERAL ADULT ---
History of Present Illness General Chief Complaint: General Adult Stated Complaint: MED REFILL Source: patient, family, old records Exam Limitations: no limitations Vital Signs & Intake/Output Vital Signs & Intake/Output Vital Signs Date Time Temp Pulse Resp B/P Pulse O2 O2 Flow FiO2 Ox Delivery Rate 07/10 1911 97.0 86 18 180/76 86 Room Air Allergies Coded Allergies: clarithromycin (From Biaxin) (Severe, HIVES ON TONGUE AND BACK OF THROAT ) cefaclor (BAD STOMACH PAIN 07/02/16) ciprofloxacin (From Cipro) (BAD STOMACH PAIN 07/02/16) Reconcile Medications Albuterol Sulfate 2.5 MG/3 ML (0.083 %) VIAL.NEB 1 Vial INH/STEVENSON Q4P PRN RESPIRATORY (Reported) Albuterol Sulfate (Proair Hfa) 90 MCG HFA.AER.AD 2 PUF INH PRN RESPIRATORY ( Reported) Amoxicillin/Potassium Clav (Augmentin 875-125 Tablet) 875 MG-125 MG TABLET 1 TAB PO BID pneumonia Atorvastatin Calcium (Lipitor) 40 MG TABLET 1 TAB PO DAILY CHOLESTEROL ( Reported) Carvedilol 25 MG TABLET 0.5 TAB PO BID HEART/BP (Reported) Diazepam (Valium) 10 MG TABLET 1 TAB PO BIDP PRN SPASMS Diazepam (Valium) 5 MG TABLET 1 TAB PO BIDP PRN muscle spasms Ibuprofen 800 MG TABLET 1 TAB PO TID PAIN (Reported) Lisinopril 40 MG TABLET 1 TAB PO DAILY BP (Reported) Metformin HCl (Glucophage) 1,000 MG TABLET 1 TAB PO BID DM (Reported) Multivitamin (Multiple Vitamins) 1 EACH TABLET 1 TAB PO DAILY SUPPLEMENT ( Reported) Oxycodone HCl (Roxicodone) 30 MG TABLET 1 TAB PO Q6P PRN PAIN Oxycodone HCl (Roxicodone) 30 MG TABLET 1 TAB PO Q6P PRN pain Oxycodone HCl (Roxicodone) 30 MG TABLET 1 TAB PO Q6P PRN PAIN Oxycodone HCl (Roxicodone) 30 MG TABLET 1 TAB PO Q6P PRN pain Oxycodone HCl 30 MG TABLET 1 TAB PO Q4H PRN PAIN Triage Note: REQUEST MED REFILL Triage Nurses Notes Reviewed? yes HPI: Patient presents for refill for her pain medications as well as her Valium. Patient states her doctor stopped prescribing medications all of his patients. Patient has appointment with pain management this . Patient took her last dose this afternoon. Patient states she has bilateral arthritis and not try she is on the medication. Patient denies any suicidal or homicidal ideations. Currently the pain is controlled at 4 out of 10 however if she misses her medication on the pain goes up to 10 OUT OF 10. Past History Travel History Traveled to [place] past 21 day No Medical History Any Pertinent Medical History? 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 No Review of Systems Review of Systems Constitutional: Reports: no symptoms. Respiratory: Reports: no symptoms. Cardiovascular: Reports: no symptoms. GI: Reports: no symptoms. Musculoskeletal: Reports: see HPI. Neurological/Psychological: Reports: no symptoms. Immunologic/Allergic: Reports: no symptoms. Physical Exam Physical Exam General Appearance: well developed/nourished, alert, awake, anxious, mild distress Eyes: Bilateral: PERRL, EOMI. Respiratory: normal breath sounds, chest non-tender, no respiratory distress, lungs clear Cardiovascular: regular rate/rhythm, normal peripheral pulses Neurologic/Psych: no motor/sensory deficits, awake, alert, oriented x 3, normal gait, normal mood/affect Core Measures ACS in differential dx? No CVA/TIA Diagnosis: No Severe Sepsis Present: No Septic Shock Present: No Progress Differential Diagnoses I considered the following diagnoses in my evaluation of the patient: [ Medication refill] Plan of Care: Current Medications Sig/Brandon Start time Last Medication Dose Stop Time Status Admin Oxycodone HCl 30 MG ONCE ONE 07/09 2014 UNVr (Roxicodone) 03/04 2016 Initial ED EKG: none Departure Departure Disposition: HOME OR SELF CARE Condition: Stable Clinical Impression Primary Impression: Medication refill Referrals: ROMAN YOON,JOYCE Stringer (PCP/Family) Additional Instructions: FOLLOW UP AT YOUR APPOINTMENT ON MONDAY Departure Forms: Customer Survey General Discharge Information Prescriptions: Current Visit Scripts Oxycodone HCl (Roxicodone) 1 TAB PO Q6P PRN PAIN #22 TAB Diazepam (Valium) 1 TAB PO BIDP PRN SPASMS #11 TAB Critical Care Note Critical Care Note Critical Care Time: non-applicable
[2016-07-09] MEDS ORDERED: VALIUM10 M1 PO (20:05)
[2016-07-09] MEDS ORDERED: ROXICODONE30 M1 PO (20:05)
[2016-07-09 20:18] VITALS: BP 172/70
== END 2016-07-09 20:19 ==
LOC: ERH 19:03
DX: Z76.0 Encounter for issue of repeat prescription (principal)

== ENCOUNTER 2016-07-16 18:17 | Emergency (ER) | payer OTHER ==
[~2016-07-16 18:17] MED LIST changes: +VALIUM10 M1 PO
[2016-07-16] MEDS ORDERED: FISH OIL 1,0001 EAC4 PO (19:34)
[2016-07-16] MEDS ORDERED: BIOTIN800 MCG PO (19:34)
[2016-07-16] MEDS ORDERED: ROXICODONE30 M1 PO (19:59)
--- NOTE | 2016-07-16 19:59 | ED GENERAL ADULT ---
History of Present Illness General Chief Complaint: General Adult Stated Complaint: MED REFILL Source: patient Exam Limitations: no limitations Vital Signs & Intake/Output Vital Signs & Intake/Output Vital Signs Date Time Temp Pulse Resp B/P Pulse O2 O2 Flow FiO2 Ox Delivery Rate 07/17 2027 98.1 78 20 148/70 98 Room Air 07/16 1841 80 22 152/74 97 ED Intake and Output 07/17 0000 07/16 1200 Intake Total 0 Output Total Balance 0 Intake, Oral 0 Allergies Coded Allergies: clarithromycin (From Biaxin) (Severe, HIVES ON TONGUE AND BACK OF THROAT ) cefaclor (BAD STOMACH PAIN 07/02/16) ciprofloxacin (From Cipro) (BAD STOMACH PAIN 07/02/16) Reconcile Medications Albuterol Sulfate 2.5 MG/3 ML (0.083 %) VIAL.NEB 1 Vial INH/STEVENSON Q4P PRN RESPIRATORY (Reported) Albuterol Sulfate (Proair Hfa) 90 MCG HFA.AER.AD 2 PUF INH PRN RESPIRATORY ( Reported) Atorvastatin Calcium (Lipitor) 40 MG TABLET 1 TAB PO DAILY CHOLESTEROL ( Reported) Biotin (Unknown Strength) TABLET (Unknown Dose) PO DAILY SUPPLEMENT (Reported ) Carvedilol 25 MG TABLET 0.5 TAB PO BID HEART/BP (Reported) Diazepam (Valium) 5 MG TABLET 1 TAB PO BIDP PRN muscle spasms Ibuprofen 800 MG TABLET 1 TAB PO TID PAIN (Reported) Lisinopril 40 MG TABLET 1 TAB PO DAILY BP (Reported) Metformin HCl (Glucophage) 1,000 MG TABLET 1 TAB PO BID DM (Reported) Multivitamin (Multiple Vitamins) 1 EACH TABLET 1 TAB PO DAILY SUPPLEMENT ( Reported) Brick-3 Fatty Acids/Fish Oil (Fish Oil 1,000 MG Softgel) (Unknown Strength) CAPSULE (Unknown Dose) PO DAILY SUPPLEMENT (Reported) Oxycodone HCl (Roxicodone) 30 MG TABLET 1 TAB PO TID PAIN Oxycodone HCl 30 MG TABLET 1 TAB PO Q4H PRN PAIN Triage Note: PER PT HERE FOR DIANA 30 REFILL. Triage Nurses Notes Reviewed? yes Onset: Abrupt Duration: day(s):, constant, continues in ED Timing: recent history No Modifying Factors: none : No Patient currently breastfeeds: No HPI: 41-year-old female comes into emergency room for medication refill. Patient has a history of chronic pain. Patient reports that her primary care doctor had discontinued all her pain medication because he lost his license to prescribe. Patient was on Roxicodone 30 mg. Patient denies any change in her symptoms. Chronic back pain. Denies any other associated symptoms at this time. (HE HALLMAN) Past History Travel History Traveled to [place] past 21 day No Medical History Any Pertinent Medical History? 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 No (HE HALLMAN) Review of Systems Review of Systems Constitutional: Reports: no symptoms. EENTM: Reports: no symptoms. Respiratory: Reports: no symptoms. Cardiovascular: Reports: no symptoms. GI: Reports: no symptoms. Genitourinary: Reports: no symptoms. Musculoskeletal: Reports: no symptoms. Skin: Reports: no symptoms. Neurological/Psychological: Reports: no symptoms. Hematologic/Endocrine: Reports: no symptoms. Immunologic/Allergic: Reports: no symptoms. All Other Systems: Reviewed and Negative (HE HALMLAN) Physical Exam Physical Exam General Appearance: well developed/nourished, no apparent distress, alert Head: atraumatic, normal appearance Eyes: Bilateral: normal appearance, EOMI. Ears, Nose, Throat: normal pharynx, normal ENT inspection, hearing grossly normal Neck: normal inspection, full range of motion Respiratory: no respiratory distress Back: normal inspection Extremities: normal inspection Neurologic/Psych: awake, alert, oriented x 3 Skin: intact, normal color Core Measures ACS in differential dx? No CVA/TIA Diagnosis: No Severe Sepsis Present: No Septic Shock Present: No (HE HALLMAN) Progress Differential Diagnoses I considered the following diagnoses in my evaluation of the patient: Chronic pain, degenerative disc disease, arthritis, fibromyalgia, Plan of Care: 07/16/2016 8:39:30 PM Patient needs follow-up with pain management. Return if any other concerns. Initial ED EKG: none (HE HALLMAN) Departure Departure Disposition: HOME OR SELF CARE Condition: Stable Clinical Impression Primary Impression: Medication refill Secondary Impressions: Chronic pain Referrals: ROMAN YOON,JOYCE Stringer (PCP/Family) Additional Instructions: Take oxycodone as prescribed. Follow-up with pain management as ready scheduled. Return if any other concerns. Please go over all results of today's visit with your primary care doctor. Contact your primary care doctor to let them know you were here in the emergency room. There may be nonspecific findings which may not be related to your visit today here in the emergency room but may require further evaluation and chronic monitoring by your primary care doctor. If you had a laceration today the chance of foreign body always remains. You should follow-up with your primary care doctor for recheck in 3-5 days for a wound check. If you had an x-ray done there is a chance that a fracture could have been missed on initial read and you should follow-up with your primary care doctor for repeat x-rays if symptoms persist. If your blood pressure was elevated here in the emergency room please have rechecked by her primary care doctor within the next 48 hours by your primary care doctor. If you were prescribed a narcotic here in the emergency room or any type of controlled substances you're not allowed to drive while taking this medication or operate any type of heavy machinery. Narcotics can make you feel lightheaded dizziness nausea and can cause constipation. You may need to chart picker a stool softener. Thank you for choosing [facility] emergency room. Please return to the emergency room immediately if you have any other concerns worsening of symptoms. Departure Forms: Customer Survey General Discharge Information Prescriptions: Current Visit Scripts Oxycodone HCl (Roxicodone) 1 TAB PO TID #12 TAB (HE HALLMAN) PA/ASPHALT SPREADER OPERATOR Co-Sign Statement Statement: ED Attending supervision documentation- [] I saw and evaluated the patient. I have also reviewed all the pertinent lab results and diagnostic results. I agree with the findings and the plan of care as documented in the PA's/ASPHALT SPREADER OPERATOR's documentation. [X] I have reviewed the ED Record and agree with the PA's/ASPHALT SPREADER OPERATOR's documentation. [] Additions or exceptions (if any) to the PAs/ASPHALT SPREADER OPERATOR's note and plan are summarized below: [] (SHANDRA YOON,MORTEZA) Critical Care Note Critical Care Note Critical Care Time: non-applicable (KESHAWN PAZ,HE)
[2016-07-16 20:28] VITALS: BP 148/70
== END 2016-07-16 20:30 ==
LOC: ERH 18:17
DX: Z76.0 Encounter for issue of repeat prescription (principal); G89.29 Other chronic pain

== ENCOUNTER 2016-07-21 14:14 | Emergency (ER) | payer OTHER ==
[~2016-07-21] VITALS: Ht 175.3 cm; Wt 149.7 kg
[~2016-07-21 14:14] MED LIST changes: +BIOTIN800 MCG PO; +FISH OIL 1,0001 EAC4 PO
[2016-07-21 14:51] VITALS: BP 164/76
--- NOTE | 2016-07-21 17:40 | ED NECK/BACK PAIN COMPLAINT ---
History of Present Illness General Chief Complaint: General Adult Stated Complaint: PT NEEDD PAIN RX REFILL AND PROBLEM BREATHING Source: patient, family, old records Exam Limitations: no limitations Vital Signs & Intake/Output Vital Signs & Intake/Output Vital Signs Date Time Temp Pulse Resp B/P Pulse O2 O2 Flow FiO2 Ox Delivery Rate 07/21 1756 Room Air 07/21 1451 97.0 66 18 164/76 98 Room Air Allergies Coded Allergies: clarithromycin (From Biaxin) (Severe, HIVES ON TONGUE AND BACK OF THROAT ) cefaclor (BAD STOMACH PAIN 07/02/16) ciprofloxacin (From Cipro) (BAD STOMACH PAIN 07/02/16) Reconcile Medications Albuterol Sulfate 2.5 MG/3 ML (0.083 %) VIAL.NEB 1 Vial INH/STEVENSON Q4P PRN RESPIRATORY (Reported) Albuterol Sulfate (Proair Hfa) 90 MCG HFA.AER.AD 2 PUF INH PRN RESPIRATORY ( Reported) Atorvastatin Calcium (Lipitor) 40 MG TABLET 1 TAB PO DAILY CHOLESTEROL ( Reported) Biotin (Unknown Strength) TABLET (Unknown Dose) PO DAILY SUPPLEMENT (Reported ) Carvedilol 25 MG TABLET 0.5 TAB PO BID HEART/BP (Reported) Diazepam (Valium) 5 MG TABLET 1 TAB PO BIDP PRN muscle spasms Ibuprofen 800 MG TABLET 1 TAB PO TID PAIN (Reported) Lisinopril 40 MG TABLET 1 TAB PO DAILY BP (Reported) Metformin HCl (Glucophage) 1,000 MG TABLET 1 TAB PO BID DM (Reported) Multivitamin (Multiple Vitamins) 1 EACH TABLET 1 TAB PO DAILY SUPPLEMENT ( Reported) Neola-3 Fatty Acids/Fish Oil (Fish Oil 1,000 MG Softgel) (Unknown Strength) CAPSULE (Unknown Dose) PO DAILY SUPPLEMENT (Reported) Oxycodone HCl 10 MG TABLET 1 TAB PO 4XDP PRN PAIN Oxycodone HCl 30 MG TABLET 1 TAB PO Q4H PRN PAIN Triage Note: PT STATES THAT SHE IS A PT OF DR RIVERA AND THAT HE CAN NO LONGER PRESCRIBE HER ROXICODONE, PT HAD 1 APPOINTMENT WITH THEM SO FAR BUT DUE TO HER MEDICAL RECORDS BEING 3 YEARS OLD THEY ARE MAKING HER GET A WORK UP PRIOR TO GETTING ANY MEDS Triage Nurses Notes Reviewed? yes : No Patient currently breastfeeds: No HPI: 41-year-old female here with chronic low back pain and requesting pain medication. She was seen here multiple times for same, this is her sixth visit here in the last 1 month. Her primary care doctor was prescribing her 30 mg Roxicodone lost his prescriber's license and she has been coming here for refills of pain medication. She is trying to get into pain management, they are waiting for her records to be sent. There is no new injury or new symptoms. No neurologic symptoms. Weakness or numbness. No new traumas. Past History Travel History Traveled to [place] past 21 day No Medical History Any Pertinent Medical History? 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 No Review of Systems Review of Systems Constitutional: Reports: see HPI. Eyes: Reports: no symptoms. Ears, Nose, Throat, Mouth: Reports: no symptoms. Respiratory: Reports: no symptoms. Cardiovascular: Reports: no symptoms. Gastrointestinal/Abdominal: Reports: no symptoms. Musculoskeletal: Reports: see HPI. Skin: Reports: no symptoms. Neurological/Psychological: Reports: no symptoms. All Other Systems: Reviewed and Negative Physical Exam Physical Exam Neck: normal inspection, supple, full range of motion Comments: Well-developed well-nourished no apparent distress. HEENT: Atraumatic, extraocular motion intact Neck: Supple, no lymphadenopathy Back: Tenderness to the paravertebral musculature on the left side lower lumbar region with mild spasming noted. No midline tenderness. No deformity or signs of trauma. There is no rashes present. Range of motion is limited secondary to pain Straight leg raise is negative bilaterally. Bilateral lower extremities are neurovascularly intact with sensation and motor grossly intact. Gait is antalgic. Respiratory: No respiratory distress Abdomen: OBESE Extremities: No edema, full range of motion Neuro: Alert and oriented x3 Psych: Mood affect normal, normal memory normal judgment. Skin: Warm and dry, no rash on exposed skin Progress Differential Diagnosis: AAA, aortic dissection, C spine injury, carotid dissection, cauda equina syn, herniated disc, myofascial strain, pyelo/UTI, sciatica, spinal cord inj, thoracic outlet syn, T/L spine injury, ureterolithiasis, DRUG SEEKING Plan of Care: I discussed with patient that I do not feel that giving her her usual prescribed 30 mg tablets of OxyContin. She would like to speak to Dr. Gallagher. After discussion with Dr. Gallagher, we will prescribe her 10 mg tablets #12, she was recommended to follow-up with pain management and she understands that cannot provide her with further medication. Departure Departure Disposition: HOME OR SELF CARE Condition: Stable Clinical Impression Primary Impression: Chronic back pain Qualifiers: Back pain location: low back pain Back pain laterality: bilateral Sciatica presence: without sciatica Qualified Codes: M54.5 - Low back pain; G89.29 - Other chronic pain Referrals: ROMAN YOON,JOYCE Stringer (PCP/Family) Additional Instructions: The emergency room can no longer provide you with narcotic pain medication for your chronic pain. Please follow-up with pain management. Departure Forms: Customer Survey General Discharge Information Prescriptions: Current Visit Scripts Oxycodone HCl 1 TAB PO 4XDP PRN PAIN #12 TAB
[2016-07-21] MEDS ORDERED: OXYCODONE HCL10 M2 PO (18:06)
== END 2016-07-21 18:30 ==
LOC: ERH 14:14
DX: G89.29 Other chronic pain (principal); M54.5 Low back pain
CPT/HCPCS: 99281

== ENCOUNTER 2016-11-30 20:17 | Inpatient (IN) | payer OTHER ==
[~2016-11-30] VITALS: Ht 177.8 cm; Wt 140.6 kg
[~2016-11-30 20:17] MED LIST changes: +OXYCODONE HCL10 M2 PO
--- NOTE | 2016-11-30 20:26 | NUR ---
REPORTS HIGH BP WITH DIZZINESS, HEADACHE, +N/-V X2-3 DAYS. STATES BP AT HOME WAS 200/102 AT HOME. ARRIVES AND BP IS 210/98 IN TRIAGE. ALSO REPORTS DIFFUSE ABDOMINAL PAIN, PRIMARILY TO L SIDE RADIATING INTO BACK. DENIES CP/SOB. 1/2PPD SMOKER. HX CARDIAC ABLATION FOR SVT, LAST EPISODE WAS 5 YEARS AGO.
[2016-11-30 21:03] LABS: ABSOLUTE BASOPHIL COUNT 0.1 /CUMM (0.0-0.2); ABSOLUTE EOSINOPHIL COUNT 0.3 /CUMM (0.0-0.7); ABSOLUTE GRANULOCYTE CT 7.9 /CUMM (1.4-6.5); ABSOLUTE LYMPH COUNT 3.8 /CUMM (1.2-3.4); ABSOLUTE MONOCYTE COUNT 0.7 /CUMM (0.10-0.60); BASOPHIL % 0.5 % (0.0-2.0); EOSINOPHIL % 2.1 % (0-5); GRANULOCYTE % 62.4 % (42.2-75.2); MEAN CORPUSCULAR HGB CONC 32.6 G/DL (33.0-37.0); MEAN CORPUSCULAR VOLUME 76.5 FL (81.0-99.0); MEAN PLATELET VOLUME 7.6 FL (7.4-10.4); PLATELET COUNT 223 /CUMM (130-400); RED BLOOD CELL CT 6.01 /CUMM (4.20-5.40); WHITE BLOOD CELL COUNT 12.7 /CUMM (4.8-10.8)
--- NOTE | 2016-11-30 21:18 | ED GENERAL ADULT ---
History of Present Illness General Chief Complaint: General Adult Stated Complaint: PER PT BP HIGH Source: patient Exam Limitations: no limitations Vital Signs & Intake/Output Vital Signs & Intake/Output Vital Signs Date Time Temp Pulse Resp B/P B/P Pulse O2 O2 Flow FiO2 Mean Ox Delivery Rate 12/01 0101 96.8 55 20 180/82 97 Room Air 11/30 2354 96.8 55 20 190/74 98 Room Air 11/30 2329 59 20 198/98 11/30 2306 56 20 202/78 11/30 2306 56 20 20278 11/30 2244 57 20 194/98 11/30 2227 60 20 200/98 11/30 2226 60 20 200/98 11/30 2122 200/92 12/01 2023 97.0 60 16 210/98 98 Room Air ED Intake and Output 12/01 0000 11/30 1200 Intake Total 0 Output Total Balance 0 Intake, Oral 0 Patient 310 lb Weight Weight Reported by Patient Measurement Method Allergies Coded Allergies: clarithromycin (From Biaxin) (Severe, HIVES ON TONGUE AND BACK OF THROAT ) cefaclor (BAD STOMACH PAIN 07/02/16) ciprofloxacin (From Cipro) (BAD STOMACH PAIN 07/02/16) Triage Note: REPORTS HIGH BP WITH DIZZINESS, HEADACHE, +N/-V X2-3 DAYS. STATES BP AT HOME WAS 200/102 AT HOME. ARRIVES AND BP IS 210/98 IN TRIAGE. ALSO REPORTS DIFFUSE ABDOMINAL PAIN, PRIMARILY TO L SIDE RADIATING INTO BACK. DENIES CP/SOB. 1/2PPD SMOKER. HX CARDIAC ABLATION FOR SVT, LAST EPISODE WAS 5 YEARS AGO. Triage Nurses Notes Reviewed? yes Onset: Abrupt Duration: intermittent Timing: recent history Severity: mild Severity Numbers: 3 : No Patient currently breastfeeds: No HPI: Patient is a 41-year-old female with past medical history of asthma, hyperlipidemia, chronic low back pain and hypertension currently compliant with metoprolol and lisinopril were patient states that she has had intermittent history of left lateral chest pain and left lower quadrant abdominal pain for the past 2 weeks where she has no pain today however she did check her blood pressure and was noted to be significantly elevated. Patient has hot flash flushing sensation and intermittent headaches in the past 2 days. Patient is compliant with her medications and is never day smoker. Currently denies any fever chills headache blurred vision neck pain chest pain are pain jaw pain nausea vomiting abdominal pain. (ALEX PAZ,OSCAR) Reconcile Medications Albuterol Sulfate 2.5 MG/3 ML (0.083 %) VIAL.NEB 1 Vial INH/STEVENSON Q4P PRN RESPIRATORY (Reported) Albuterol Sulfate (Proair Hfa) 90 MCG HFA.AER.AD 2 PUF INH PRN RESPIRATORY ( Reported) Atorvastatin Calcium (Lipitor) 40 MG TABLET 1 TAB PO DAILY CHOLESTEROL ( Reported) Biotin 800 MCG TABLET 1 TAB PO DAILY SUPPLEMENT (Reported) Furosemide (Lasix) 20 MG TABLET 1-3 TAB PO PRN DIURETIC (Reported) Ibuprofen 800 MG TABLET 1 TAB PO TID PAIN (Reported) Lisinopril 40 MG TABLET 1 TAB PO DAILY BP (Reported) Metformin HCl (Glucophage) 1,000 MG TABLET 1 TAB PO DAILY DM (Reported) Metoprolol Succinate 100 MG TAB.ER.24H 1 TAB PO BID HEART/BP (Reported) Mometasone/Formoterol (Dulera 200 Mcg/5 Mcg Inhaler) 200 MCG-5 MCG/ACTUATION HFA.AER.AD 2 PUF INH PRN RESP. (Reported) Multivitamin (Multiple Vitamins) 1 EACH TABLET 1 TAB PO DAILY SUPPLEMENT ( Reported) Goldsmith-3 Fatty Acids/Fish Oil (Fish Oil 1,000 MG Softgel) (Unknown Strength) CAPSULE (Unknown Dose) PO DAILY SUPPLEMENT (Reported) Oxycodone HCl 10 MG TABLET 1 TAB PO 4XDAILY PAIN (Reported) (JONO YOON,JESSI Laurent) Past History Travel History Traveled to [place] past 21 day No Medical History Any Pertinent Medical History? 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 No (OSCAR VILLALTA) Review of Systems Review of Systems Constitutional: Reports: no symptoms. EENTM: Reports: no symptoms. Respiratory: Reports: see HPI. Cardiovascular: Reports: see HPI. GI: Reports: no symptoms. Genitourinary: Reports: no symptoms. Musculoskeletal: Reports: no symptoms. Skin: Reports: no symptoms. Neurological/Psychological: Reports: see HPI. Hematologic/Endocrine: Reports: no symptoms. Immunologic/Allergic: Reports: no symptoms. All Other Systems: Reviewed and Negative (OSCAR VILLALTA) Physical Exam Physical Exam General Appearance: no apparent distress, alert, comfortable Comments: Well-developed well-nourished person in no acute distress HEENT: Normal EENT exam, extraocular motion intact, no nystagmus. Pupils equally round and reactive to light and accommodation. Nose is atraumatic. External auditory canal and Tympanic membranes clear. Pharynx normal. No swelling or edema. Neck: Supple, no lymphadenopathy, normal range of motion without pain or tenderness Back: Nontender, no CVA tenderness. Cardiovascular: Regular rate and rhythms no murmurs rubs or gallops, normal JVP Respiratory: Chest nontender. No respiratory distress.breath sounds clear to auscultation bilaterally Abdomen: Soft, nontender nondistended, no appreciable organomegaly. Normal bowel sounds. No ascites Extremity: No edema, no calf tenderness to palpation, normal and equal pulses. Neuro: Alert oriented x3, motor sensory normal, cranial nerves II through XII grossly intact. Skin: No appreciable rash on exposed skin, skin is warm and dry. Psych: Mood and affect is normal, memory and judgment is normal. Core Measures ACS in differential dx? Yes CVA/TIA Diagnosis: No Severe Sepsis Present: No Septic Shock Present: No (OSCAR VILLALTA) Progress Differential Diagnoses I considered the following diagnoses in my evaluation of the patient: [TIA, CVA, hypertensive urgency, hypertensive emergency, hypertension, myocardial infarction, PE, aneurysm] Plan of Care: Orders Procedure Date/time Status Consistent Carbohydrate 3 12/01 B Active URINALYSIS 12/01 599 Active TROPONIN LEVEL 12/01 599 Active LIPID PANEL 12/01 599 Active HEPATIC FUNCTION PANEL 12/01 599 Active CBC WITHOUT DIFFERENTIAL 12/01 599 Active BASIC ELECTROLYTES PLUS BUN&CR 07/27 0600 Active EKG 07/27 0600 Active TROPONIN LEVEL 12/01 0200 Active EKG 12/01 0200 Active Vital Signs 12/01 0109 Active Teach/Educate 12/01 010 Active Pain Treatment and Response 12/01 010 Active Nutritional Intake, Monitor 12/01 010 Active Isolation 12/01 010 Active Patient Care Conference 12/01 010 Active Activity/Ambulation 12/01 010 Active Add-on Test (ER Only) 12/01 0016 Active Pathway - chart 12/01 0005 Active House Staff 12/01 0005 Active Code Status 12/01 0005 Active Add-on Test (ER Only) 12/01 0004 Active Admit to inpatient 12/01 0002 Active Patient Data 12/01 0002 Active VTE Mechanical Prophylaxis 12/01 UNK Active FingerStick- Glucose 12/01 UNK Active Telemetry/Fire Lieutenant Marine 11/30 2333 Active URINE DRUGS OF ABUSE 11/30 2257 Complete Intake & Output 12/01 2131 Active TOTAL IRON BINDING CAPACITY 11/30 2032 Complete FERRITIN 11/30 2032 Complete SERUM IRON 11/30 2032 Complete URINE 11/30 2025 Complete URINALYSIS 11/30 2025 Complete TROPONIN LEVEL 11/30 2025 Complete LIPASE 11/30 2025 Complete COMPREHENSIVE METABOLIC PANEL 11/30 2025 Complete CBC WITHOUT DIFFERENTIAL 11/30 2025 Complete EKG 11/30 2025 Active Current Medications Sig/Brandon Start time Last Medication Dose Stop Time Status Admin Atorvastatin Calcium 40 MG 1700 12/01 1700 AC (Lipitor) Budesonide/ 2 PUF BID 12/01 1000 AC Formoterol Fumarate (SYMBICORT) Fish Oil 1,050 MG DAILY 12/01 1000 AC (Goldsmith-3) Lisinopril 40 MG DAILY 12/01 1000 UNVr (Prinivil) Multivitamins 1 TAB DAILY 12/01 1000 AC Therapeutic (Theragran-M Vitamins Tabs) Insulin Aspart 0 TIDAC 12/01 0800 AC (NovoLOG) Heparin Sodium 5,000 UNIT Q8 12/01 0600 AC (Porcine) Oxycodone HCl 10 MG Q6 12/01 0600 UNVr (Roxicodone) Acetaminophen 650 MG Q6P PRN 12/01 0015 AC (Tylenol) Labetalol HCl 10 MG ONCE ONE 11/30 2300 CAN (Trandate) 11/30 2301 Laboratory Tests 11/30/16 2258: Urine Opiates Screen 307.00, Methadone Screen < 40, Barbiturate Screen < 60, Ur Phencyclidine Scrn < 6.00, Amphetamines Screen < 100, U Benzodiazepines Scrn > 800 H, Urine Cocaine Screen < 50, Urine Cannabis Screen < 5.00, Urinalysis LIGHT H, Urine Color YEL, Urine Clarity HAZY H, Urine pH 6.0, Ur Specific [place] 1.010, Urine Protein TRACE H, Urine Ketones NEG, Urine Nitrite NEG, Urine Bilirubin NEG, Urine Urobilinogen 0.2, Ur Leukocyte Esterase MOD H, Ur Microscopic SEDIMENT EXAMINED, Urine RBC RARE, Urine WBC 50-75 H, Ur Epithelial Cells MANY H, Urine Bacteria FEW H, Urine Mucus RARE, Urine Hemoglobin NEG, Urine Glucose NEG, Urine Test NEGATIVE 11/30/162032: Anion Gap 9, Estimated GFR > 60, BUN/Creatinine Ratio 18.6, Glucose 153 H, Calcium 9.1, Iron 93, TIBC 346, Ferritin 143.0 H, Total Bilirubin 0.9, AST 29, ALT 62 H, Alkaline Phosphatase 77, Troponin I < 0.01, Total Protein 7.4, Albumin 4.4, Globulin 3.0, Albumin/Globulin Ratio 1.5, Lipase 68, CBC w Diff NO MAN DIFF REQ, RBC 6.01 H, MCV 76.5 L, MCH 25.0 L, RDW 27.0 H, MPV 7.6, Gran % 62.4, Lymphocytes % 29.6, Monocytes % 5.4, Eosinophils % 2.1, Basophils % 0.5, Absolute Granulocytes 7.9 H, Absolute Lymphocytes 3.8 H, Absolute Monocytes 0.7 H, Absolute Eosinophils 0.3, Absolute Basophils 0.1, PUBS MCHC 32.6 L Patient on initial examination was in no apparent distress however manual blood pressure did note to have elevated BP. Patient had unremarkable EKG sinus telemetry noted on monitor and unremarkable initial blood work over significant blood pressure was unrelieved with Vasotec and labetalol. Patient spell outpatient treatment of lisinopril and metoprolol for her antihypertensive medications in which she'll be admitted for concerns of hypertensive urgency. Discussed admission with DR. DE LA CRUZ Discussed admission with patient who agrees and has no questions Patient was evaluated on multiple occasions and noted to be resting comfortably at bedside prior to admission (OSCAR VILLALTA) Initial ED EKG: normal QRS complex, normal sinus rhythm, 61 BPM, NSR (OSCAR VILLALTA) Departure Departure Disposition: STILL A PATIENT Condition: Guarded Clinical Impression Primary Impression: Hypertensive urgency Referrals: JOYCE OWENS MD (PCP/Family) Departure Forms: Customer Survey General Discharge Information Admission Note Spoke With: AICHA ZAZUETA MD Documentation of Exam: Documentation of any treatments & extenuating circumstances including Concerns Regarding Discharge (functional status, medication knowledge or non-compliance, living conditions, etc.) that warrant an admission rather than observation: [ Discussed admission with Dr. ZAZUETA who agrees with telemetry admission for concerns of hypertensive urgency which patient requires telemetry monitoring, repeat labs, and IV antihypertensive administration of medications. Due to a failed outpatient treatment and persistent critical elevated blood pressure that outpatient treatment would be medically harmful] (OSCAR VILLALTA) PA/SUPERVISOR COLOR MAKING Co-Sign Statement Statement: ED Attending supervision documentation- [x] I saw and evaluated the patient. I have also reviewed all the pertinent lab results and diagnostic results. I agree with the findings and the plan of care as documented in the PA's/SUPERVISOR COLOR MAKING's documentation. 12/01/16, 0:45 pt comfortable, but with persistently elevated blood pressure.... exam benign... pt to be admitted with hypertensive urgency, rule out, monitoring, consider cards eval in the AM. [] I have reviewed the ED Record and agree with the PA's/SUPERVISOR COLOR MAKING's documentation. [] Additions or exceptions (if any) to the PAs/SUPERVISOR COLOR MAKING's note and plan are summarized below: [] (JONO YOON,JESSI Laurent) Critical Care Note Critical Care Note Critical Care Time: 30-74 min (OSCAR VILLALTA) Critical Care Note Critical Care Time: 30-74 min (JESSI DE LA CRUZ MD)
--- NOTE | 2016-11-30 21:31 | NUR ---
PT AMBULATORY TO ROOM. MANUAL BP 200/92. PT REMAINS ALERT AND ORIENTED. AWAITING PROVIDER EVAL.
--- NOTE | 2016-11-30 21:33 | NUR ---
PT AWARE THAT URINE SPECIMEN IS NEEDED.
[2016-11-30] MEDS ORDERED: OXYCODONE HCL10 M2 PO (22:17)
[2016-11-30] MEDS ORDERED: DULERA 200 MCG/13 GM INH (22:19)
[2016-11-30] MEDS ORDERED: LASIX20 M1 PO (22:21)
[2016-11-30] MEDS ORDERED: METOPROLOL SUC100 M2 PO (22:25)
--- NOTE | 2016-11-30 22:30 | NUR ---
PT MEDICATED WITH IV LABETALOL PER EMAR. WILL CONTINUE TO MONITOR.
--- NOTE | 2016-11-30 22:45 | NUR ---
PT'S MANUAL BP 194/98 HR 57. PA ALEX AWARE.
--- NOTE | 2016-11-30 23:01 | NUR ---
URINE TRIO SENT TO LAB
--- NOTE | 2016-11-30 23:07 | NUR ---
PT'S MANUAL BP 202/78 HR 56. PT MEDICATED WITH VASOTEC PER EMAR. WILL CONTINUE TO MONITOR.
--- NOTE | 2016-11-30 23:29 | NUR ---
DR DE LA CRUZ AT BEDSIDE FOR EVAL.
[2016-12-01] VITALS (7 sets, daily range): BP systolic 142–210; BP diastolic 64–100
--- NOTE | 2016-12-01 00:35 | NUR ---
PT BED ASSIGNMENT 178-1
--- NOTE | 2016-12-01 00:54 | NUR ---
HOUSESTAFF AT BEDSIDE FOR EVAL.
--- NOTE | 2016-12-01 01:06 | NUR ---
REPORT GIVEN TO MALDONADO MCCRAY
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
[2016-12-01] MEDS ORDERED: ASPIRIN81 M4 PO (01:35)
--- NOTE | 2016-12-01 05:33 | Admission Certification ---
Admission Certification Certification Statement - As attending physician, I certify that at the time of - admission, based on clinical presentation, severity of - symptoms, need for further diagnostic testing and - therapeutic interventions, and risk of adverse outcomes - without in-hospital treatment, in my clinical assessment, - this patient requires an acute hospital stay for a minimum - of two nights or longer. I have also considered psychsocial - factors such as support system, advanced age, financial - issues, cognitive issues, and failed out-patient treatments, - past re-admission history, safety of patient, and lack of - compliance as applicable. Specific rationale supporting this admission is: Hypertensive urgency
[2016-12-01 10:03] LABS: ABSOLUTE BASOPHIL COUNT 0 /CUMM (0.0-0.2); ABSOLUTE EOSINOPHIL COUNT 0.2 /CUMM (0.0-0.7); ABSOLUTE GRANULOCYTE CT 6.2 /CUMM (1.4-6.5); ABSOLUTE LYMPH COUNT 2.6 /CUMM (1.2-3.4); ABSOLUTE MONOCYTE COUNT 0.6 /CUMM (0.10-0.60); BASOPHIL % 0.4 % (0.0-2.0); EOSINOPHIL % 2.2 % (0-5); GRANULOCYTE % 64.2 % (42.2-75.2); HEMATOCRIT 45.7 % (37-47); MEAN CORPUSCULAR HGB 24.7 PG (27.0-31.0); MEAN CORPUSCULAR HGB CONC 32.3 G/DL (33.0-37.0); MEAN CORPUSCULAR VOLUME 76.5 FL (81.0-99.0); MEAN PLATELET VOLUME 7.6 FL (7.4-10.4); PLATELET COUNT 200 /CUMM (130-400); RBC DISTRIBUTION WIDTH 26.3 % (11.5-14.5); RED BLOOD CELL CT 5.98 /CUMM (4.20-5.40); WHITE BLOOD CELL COUNT 9.7 /CUMM (4.8-10.8)
--- NOTE | 2016-12-01 11:24 | Cons- Endocrinology ---
General Information and HPI Consulting Request Date of Consult: 12/01/16 Requested By: medical team Reason for Consult: Hypertension urgency and Hx of pituitary surgery Source of Information: patient, family, old records Exam Limitations: no limitations History of Present Illness: 41 y/o female with PMH of pituitary tumor s/p resection in 2008, HTN,DM nyla 2, SVT s/p ablation, CAD s/p cardiac cath, COPD, bronchitis, chronic back pain and anxiety came in the ED with CC of dizziness and high blood pressure with BP of 210/98 in ER. She was on metoprolol 100 mg twice a day and Lisinopril 40 mg daily at home. Currently she is on Lisinopril 40 mg daily, metoprolol 100 mg twice a day and Amlodipine [address] scan of abdomen done in 2011, 2014 and 2015-- her adrenal gands were unremarkable. Since pituitary surgery, she didn't have periods for years. However, she had bleeding once two months. She had significant hair loss and hasn't been on pituitary hormone replacement. Allergies/Medications Allergies: Coded Allergies: clarithromycin (From Biaxin) (Severe, HIVES ON TONGUE AND BACK OF THROAT ) cefaclor (BAD STOMACH PAIN 07/02/16) ciprofloxacin (From Cipro) (BAD STOMACH PAIN 07/02/16) Home Med List: Albuterol Sulfate 2.5 MG/3 ML (0.083 %) VIAL.NEB 1 Vial INH/ST[place] Q4P PRN RESPIRATORY (Reported) Albuterol Sulfate (Proair Hfa) 90 MCG HFA.AER.AD 2 PUF INH PRN RESPIRATORY ( Reported) Aspirin (Aspirin*) 81 MG TAB.CHEW 1 TAB PO DAILY HEART (Reported) Atorvastatin Calcium (Lipitor) 40 MG TABLET 1 TAB PO DAILY CHOLESTEROL ( Reported) Biotin 800 MCG TABLET 1 TAB PO DAILY SUPPLEMENT (Reported) Furosemide (Lasix) 20 MG TABLET 1-3 TAB PO PRN DIURETIC (Reported) Ibuprofen 800 MG TABLET 1 TAB PO TID PAIN (Reported) Lisinopril 40 MG TABLET 1 TAB PO DAILY BP (Reported) Metformin HCl (Glucophage) 1,000 MG TABLET 1 TAB PO DAILY DM (Reported) Metoprolol Succinate 100 MG TAB.ER.24H 1 TAB PO BID HEART/BP (Reported) Mometasone/Formoterol (Dulera 200 Mcg/5 Mcg Inhaler) 200 MCG-5 MCG/ACTUATION HFA.AER.AD 2 PUF INH PRN RESP. (Reported) Multivitamin (Multiple Vitamins) 1 EACH TABLET 1 TAB PO DAILY SUPPLEMENT ( Reported) [place]-3 Fatty Acids/Fish Oil (Fish Oil 1,000 MG Softgel) (Unknown Strength) CAPSULE (Unknown Dose) PO DAILY SUPPLEMENT (Reported) Oxycodone HCl 10 MG TABLET 1 TAB PO 4XDAILY PAIN (Reported) Review of Systems Review of Systems Constitutional: Reports: see HPI. Cardiovascular: Denies: chest pain. Respiratory: Denies: short of breath. GI: Denies: abdominal pain. Musculoskeletal: Denies: back pain. Hematologic/Endocrine: Denies: polyuria, polydipsia. Past History Travel History Traveled to [place] past 21 day No Medical History Blood Transfusion Hx: No Neurological: NONE EENT: otitis media Cardiovascular: CHF, SVT heart disease CARDIAC ABLATION Respiratory: asthma, bronchitis, COPD Gastrointestinal: NONE Hepatic: NONE Renal: NONE Musculoskeletal: chronic back pain, SLIPPED DISK PROTRUDING DISK COMPRESSED DISKS Psychiatric: NONE Endocrine: diabetes Blood Disorders: NONE Cancer(s): NONE [place]/Reproductive: NONE Other Medical Hx: Morbid obesity Surgical History Surgical History: PITUITARY REMOVED Family History Relations & Conditions If Any: GRAND MOTHER FH: colon cancer Psychosocial History Where Do You Live? Home Who Do You Live With? spouse Services at Home: None Smoking Status: Current Everyday Smoker ETOH Use: denies use Illicit Drug Use: marijuana Functional Ability ADLs Independent: dressing, eating, toileting, bathing. Ambulation: independent IADLs Independent: shopping, housework, finances, food prep, telephone, transportation , medication admin. Exam & Diagnostic Data Last 24 Hrs of Vital Signs/I&O Vital Signs Date Time Temp Pulse Resp B/P B/P Pulse O2 O2 Flow FiO2 Mean Ox Delivery Rate 12/01 1010 178/82 12/01 0822 56 210/102 12/01 0821 56 210/102 12/01 0820 59 210/102 12/01 0713 97.8 53 20 172/100 96 Room Air 12/01 0413 60 180/80 12/01 0145 98.4 52 20 178/84 93 Room Air 12/01 0101 96.8 55 20 180/82 97 Room Air 11/30 2354 96.8 55 20 190/74 98 Room Air 07/26 2329 59 20 198/98 11/306 56 20 11/30 56 20 11/304 57 20 194/98 11/30 2226 60 20 200/98 11/30 2225 60 20 200/98 11/302 200/92 12/01 2023 97.0 60 16 210/98 98 Room Air Intake & Output 12/01 1600 12/01 0800 12/01 0000 Intake Total 250 0 Output Total Balance 250 0 Intake, IV 0 Intake, Oral 250 0 Number 0 Bowel Movements Patient 310 lb 310 lb Weight Weight Reported by Patient Reported by Patient Measurement Method Physical Exam General Appearance: no apparent distress, obese Neck: normal inspection Respiratory: decreased breath sounds Cardiovascular: regular rate/rhythm, murmur Gastrointestinal: distention Extremities: no edema Labs/Meet Results: Laboratory Tests 12/01 12/01 0830 0225 Chemistry Sodium (137 - 145 mmol/L) 141 Potassium (3.5 - 5.1 mmol/L) 4.2 Chloride (98 - 107 mmol/L) 99 Carbon Dioxide (22 - 30 mmol/L) 33 H Anion Gap (5 - 16) 9 BUN (7 - 17 mg/dL) 12 Creatinine (0.5 - 1.0 mg/dL) 0.6 Estimated GFR (>60 ml/min) > 60 BUN/Creatinine Ratio (7 - 25 %) 20.0 Total Bilirubin (0.2 - 1.3 mg/dL) 1.0 Direct Bilirubin (< 0.4 mg/dL) 0.3 AST (14 - 36 U/L) 24 ALT (9 - 52 U/L) 51 Alkaline Phosphatase (<127 U/L) 71 Troponin I (< 0.11 ng/ml) < 0.01 < 0.01 Total Protein (6.3 - 8.2 g/dL) 6.8 Albumin (3.5 - 5.0 g/dL) 3.9 Triglycerides (<150 mg/dL) 295 H Cholesterol (<200 MG/DL) 199 LDL Cholesterol, Calc (65 - 129 mg/dL) 102 HDL Cholesterol (40 - 60 mg/dL) 38 L Cholesterol/HDL Ratio (0.00 - 4.23 %) 5.2 H Hematology CBC w Diff NO MAN DIFF REQ WBC (4.8 - 10.8 /CUMM) 9.7 RBC (4.20 - 5.40 /CUMM) 5.98 H Hgb (12.0 - 16.0 G/DL) 14.8 Hct (37 - 47 %) 45.7 MCV (81.0 - 99.0 FL) 76.5 L MCH (27.0 - 31.0 PG) 24.7 L RDW (11.5 - 14.5 %) 26.3 H Plt Count (130 - 400 /CUMM) 200 MPV (7.4 - 10.4 FL) 7.6 Gran % (42.2 - 75.2 %) 64.2 Lymphocytes % (20.5 - 51.1 %) 27.1 Monocytes % (1.7 - 9.3 %) 6.1 Eosinophils % (0 - 5 %) 2.2 Basophils % (0.0 - 2.0 %) 0.4 Absolute Granulocytes (1.4 - 6.5 /CUMM) 6.2 Absolute Lymphocytes (1.2 - 3.4 /CUMM) 2.6 Absolute Monocytes (0.10 - 0.60 /CUMM) 0.6 Absolute Eosinophils (0.0 - 0.7 /CUMM) 0.2 Absolute Basophils (0.0 - 0.2 /CUMM) 0 PUBS MCHC (33.0 - 37.0 G/DL) 32.3 L 11/30 Chemistry Sodium (137 - 145 mmol/L) 138 Potassium (3.5 - 5.1 mmol/L) 4.4 Chloride (98 - 107 mmol/L) 98 Carbon Dioxide (22 - 30 mmol/L) 31 H Anion Gap (5 - 16) 9 BUN (7 - 17 mg/dL) 13 Creatinine (0.5 - 1.0 mg/dL) 0.7 Estimated GFR (>60 ml/min) > 60 BUN/Creatinine Ratio (7 - 25 %) 18.6 Glucose (65 - 99 mg/dL) 153 H Calcium (8.4 - 10.2 mg/dL) 9.1 Iron (37 - 170 ug/dL) 93 TIBC (265 - 497 ug/dL) 346 Ferritin (6.24 - 137 ng/mL) 143.0 H Total Bilirubin (0.2 - 1.3 mg/dL) 0.9 AST (14 - 36 U/L) 29 ALT (9 - 52 U/L) 62 H Alkaline Phosphatase (<127 U/L) 77 Troponin I (< 0.11 ng/ml) < 0.01 Total Protein (6.3 - 8.2 g/dL) 7.4 Albumin (3.5 - 5.0 g/dL) 4.4 Globulin (1.9 - 4.2 gm/dL) 3.0 Albumin/Globulin Ratio (1.1 - 2.2 %) 1.5 Lipase (23 - 300 U/L) 68 Hematology CBC w Diff NO MAN DIFF REQ WBC (4.8 - 10.8 /CUMM) 12.7 H RBC (4.20 - 5.40 /CUMM) 6.01 H Hgb (12.0 - 16.0 G/DL) 15.0 Hct (37 - 47 %) 46.0 MCV (81.0 - 99.0 FL) 76.5 L MCH (27.0 - 31.0 PG) 25.0 L RDW (11.5 - 14.5 %) 27.0 H Plt Count (130 - 400 /CUMM) 223 MPV (7.4 - 10.4 FL) 7.6 Gran % (42.2 - 75.2 %) 62.4 Lymphocytes % (20.5 - 51.1 %) 29.6 Monocytes % (1.7 - 9.3 %) 5.4 Eosinophils % (0 - 5 %) 2.1 Basophils % (0.0 - 2.0 %) 0.5 Absolute Granulocytes (1.4 - 6.5 /CUMM) 7.9 H Absolute Lymphocytes (1.2 - 3.4 /CUMM) 3.8 H Absolute Monocytes (0.10 - 0.60 /CUMM) 0.7 H Absolute Eosinophils (0.0 - 0.7 /CUMM) 0.3 Absolute Basophils (0.0 - 0.2 /CUMM) 0.1 PUBS MCHC (33.0 - 37.0 G/DL) 32.6 L Toxicology Urine Opiates Screen (>2000 NG/ML) 307.00 Methadone Screen (>300 NG/ML) < 40 Barbiturate Screen (>200 NG/ML) < 60 Ur Phencyclidine Scrn (>25 NG/ML) < 6.00 Amphetamines Screen (>1000 NG/ML) < 100 U Benzodiazepines Scrn (>200 NG/ML) > 800 H Urine Cocaine Screen (>300 NG/ML) < 50 Urine Cannabis Screen (>50 NG/ML) < 5.00 Urines Urinalysis LIGHT H Urine Color (YEL,AMB,STR) YEL Urine Clarity (CLEAR) HAZY H Urine pH (5.0 - 8.0) 6.0 Ur Specific [place] (1.001 - 1.035) 1.010 Urine Protein (NEG,<30 MG/DL) TRACE H Urine Ketones (NEG) NEG Urine Nitrite (NEG) NEG Urine Bilirubin (NEG) NEG Urine Urobilinogen (0.1 - 1.0 EU/dl) 0.2 Ur Leukocyte Esterase (NEG) MOD H Ur Microscopic SEDIMENT EXAMINED Urine RBC (0 - 5 /HPF) RARE Urine WBC (0 - 2 /HPF) 50-75 H Ur Epithelial Cells (NONE,FEW) MANY H Urine Bacteria (NEG/NONE) FEW H Urine Mucus (FEW,NONE) RARE Urine Hemoglobin (NEG) NEG Urine Glucose (N MG/DL) NEG Urine Test NEGATIVE Assessment/Plan Assessment/Plan 41 y/o female with PMH of pituitary tumor s/p resection in 2008, HTN,DM nyla 2, SVT s/p ablation, CAD s/p cardiac cath, COPD, bronchitis, chronic back pain and anxiety came in the ED with CC of dizziness and high blood pressure with BP of 210/98 in ER. Currently she is on Lisinopril 40 mg daily, metoprolol 100 mg twice a day and Amlodipine 5 mg daily. She has had pituitary tumor removed in 2008 and hasn't been on the hormone replacement. I will recommend checkin. am cortisol, ACTH; 2. FSH, LH and Estradiol; 3. TSH, free T4 and TT3; 4. prolactin; 5. IGF-1. She presented with hypertension urgency. Previous CT of abdomen showed unremarkable adrenal glands. But the work-up still should be done to look for secondary causes: 1. check PRA and aldosterone; 2. check 24 hours urine fractionated catecholamines and metanephrines; 3. check 24 hours urine free cortisol; will follow. Consult Acknowledgment - Thank you for your consult request.
--- NOTE | 2016-12-01 15:48 | PN- Housestaff ---
CARLOS YOON,GLEN 12/01/16 1548: Assessment/Plan Consulting Request: Consulting Specialty: Endocrinology CLEVELAND GOMEZ MD 12/01/16 1633: Attending MD Review Statement Attending Statement Attending MD Statement: examined this patient, discuss w/resident/PA/MAINTENANCE DISPATCHER, agreed w/resident/PA/MAINTENANCE DISPATCHER, discussed with family, reviewed EMR data (avail), discussed with nursing, reviewed images, amended to note Attending Assessment/Plan: The patient was seen and discussed with house staff. Agree with the plan of care. BP reduced with addition of Amlodipine. Appreciate Endocrinology input. Continue to follow BP.
[2016-12-02] VITALS (8 sets, daily range): BP systolic 174–200; BP diastolic 76–100
--- NOTE | 2016-12-02 13:55 | PN- Endocrinology ---
Assessment/Plan Assessment: 41 y/o female with PMH of pituitary tumor s/p resection in 2008, HTN,DM nyla 2, SVT s/p ablation, CAD s/p cardiac cath, COPD, bronchitis, chronic back pain and anxiety came in the ED with CC of dizziness and high blood pressure with BP of 210/98 in ER. Currently she is on Lisinopril 40 mg daily, metoprolol 100 mg twice a day and Amlodipine 5 mg daily. Although previous CT of abdomen showed unremarkable adrenal glands. Adrenal hormonal work-up was recommended. She is in the process of collecting 24 hours urine. She has had pituitary tumor removed in 2008 and hasn't been on the hormone replacement. 1. am cortisol 4.9, ACTH pending; 2. LH 1.9 and Estradiol 21.5--consistent with hypogonadotrophic hypogonadism. 3. TSH 1.66, free T4 1.00-- normal TFT 4. prolactin 14.4; 5. IGF-1 pending Plan: 1. hypertensive urgency: ---follow adrenal hormonal evaluation; --- continue monitoring BP; 2. work-up suggested hypogonadotrophic hypogonadism; her TFT is intact, but her am cortisol level is low. ---suggest ACTH stimulation test ---repeat MRI of pituitary as outpatient. will follow. Subjective Subjective: Her am BP is still 180/100. Objective Last 24 Hrs of Vital Signs/I&O Vital Signs Date Time Temp Pulse Resp B/P B/P Pulse O2 O2 Flow FiO2 Mean Ox Delivery Rate 12/02 1113 186/100 12/02 0857 60 200/100 12/02 0857 60 200/100 12/02 0857 60 200/100 12/02 0852 200/100 12/02 0640 97.6 53 20 180/100 97 Room Air 12/02 0050 53 182/96 12/02 0021 55 200/100 12/02 0010 50 200/100 12/01 2347 48 200/100 12/01 2249 98.3 60 20 210/90 96 Room Air 12/01 2108 60 210/90 12/01 1443 98.6 53 20 142/64 94 Room Air Intake & Output 12/02 1600 12/02 0800 12/02 0000 Intake Total 480 480 Output Total Balance 480 480 Intake, Oral 480 480 Results Pertinent Lab/Meet Results: Laboratory Tests 12/02 12/02 12/02 0627 0627 0600 Chemistry Aldosterone Pending TSH (0.270 - 4.200 uIU/mL) 1.660 Free T4 (0.64 - 1.79 ng/dL) 1.00 Estradiol (E2) Level (pg/mL) 21.5 Prolactin (3.0 - 18.6 ng/mL) 14.4 Insulin-like GF I Pending IGF I Z-Score (Male) Pending IGF I Z-Score (Female) Pending IGF Binding Protein-3 Pending Cortisol AM Sample (4.46 - 22.7 ug/dL) 4.9 ACTH Stimulation Pending Immunology ABEBE Titer Pending Anti-Nuclear Antibody Pending
--- NOTE | 2016-12-02 14:11 | PN- Housestaff ---
CARLOS YOON,GLEN 12/02/16 1411: Assessment/Plan Consulting Request: Consulting Specialty: Endocrinology JASON YOON,CLEVELAND 12/02/16 1568: Assessment/Plan Assessment: Assessment 41 y lady with PMH of pituitary tumor s/p resection, HTN,DM, SVT s/p ablation, CAD s/p cardiac cath, COPD, bronchitis, chronic back pain and anxiety who was admitted with CC of dizziness and high blood pressure . On admission the Patient reported that she was doing her routine work when she noticed dizziness and when she checked her blood pressure it was higher than her baseline blood pressure( SBP 150mmHg). She denied any chest pain, nausea, vomiting, vision changes, headaches, abdominal pain, loss of consciousness, numbness, weakness and dysuria. She also reported that she has H/O headaches two days back that was intermittent and also having H/O chest pain intermittently for which she went to ED twice in last couple of days. She has H/O of back pain taht's 5/10, sharp apin and 8/10 on touching or movement. Patient is stating that she has ear pain and a probable ear infection due to her recent tooth pull as well as a sinus infection. She has chronic nasal drip. Patient is secondary to go for today. Plan # Hypertensive urgency: -Blood pressure is now 142/70 stable -This patient has chest discomfort that is beyond her baseline and, considering her risk factors, should be risk stratified with a pharmacologic stress test. - The patient, at present, refuses a stress test however. -Risk factor management should be pursued including smoking cessation, weight loss with optimization of her lipid profile, good control of blood glucose and control of blood pressure. -will Obtain an echocardiogram to look for overall EF, regional wall motion abnormalities and myocardial thickening. -Continue aspirin and a statin. Continue her current dose of beta arpit. Increase Lisinopril to 40mg BID. DC amlodipine and begin Nifedipine ER 30mg daily. Continue her diuretic. -This patient is severely hypertensive on multiple medications, We should look for secondary causes of hypertension including renal artery stenosis. Obtain a renal artery ultrasound. -Low calorie and low sodium diet. Patient is refusing to take Procardia 60 mg on discharge, we'll give her 30 mg instead. ? Hypogonadotrophic hypogonadism -She has had pituitary tumor removed in 2008 and hasn't been on the hormone replacement. - am cortisol 4.9, ACTH pending; - LH 1.9 and Estradiol 21.5--consistent with hypogonadotrophic hypogonadism. - TSH 1.66, free T4 1.00-- normal TFT -prolactin 14.4; -IGF-1 pending -Patient had a cortisol stimulation test done yesterday morning. So far the cortisol level at one half hour is 21.9 and then 25.9 at one hour. This is a normal test. -As above the patient has hypogonadotrophic hypogonadism but she is also on chronic pain medicine can cause this disorder. Therefore it is difficult to discern whether her lack of estrogen is due to resection of the pituitary tumor versus chronic narcotic pain medicine which can suppress the pituitary gonadal axis. -Repeat MRI on outpatient -Patient will follow up endocrine labs outpatient #BACK PAIN: continue oxycodone follow painn score #ANXIETY: continue alprazolam #Questionable sinus infection She is requesting Zithromax. She was given 500 Zithromax to began and 250 mg or 5 days thereafter she is currently on day 2. Discharge her with 3 days of Zithromax. DVT PROPHYLAXIS: mechanical and heparin CODE STATUS: full code Attending MD Review Statement Attending Statement Attending MD Statement: examined this patient, discuss w/resident/PA/CUSTOMER RETENTION SPECIALIST, agreed w/resident/PA/CUSTOMER RETENTION SPECIALIST, discussed with family, reviewed EMR data (avail), discussed with nursing, discussed with case mgmt, amended to note Attending Assessment/Plan: The patient was seen and discussed with house staff. Appreciate Endocrinology follow-up. Hypogonadotropic hypogonadism as per endocrinology. Will complete 24 hour urine collection this evening. BP remains elevated. Additional dose of Amlodipine 5 mg given this evening. Will increase Amlodipine dose to 10 mg in morning and give Lasix 20 mg in morning (patient is normally on at home.). Pain is under better control with increased dose of Roxicodone and increased frequency. She does have some tender nodular areas on anterior proximal right thigh (have been there before) that may be inflammatory. The patient will take Motrin for this and observe response. ACTH stimulation test in morning as per Endocrinology. Await cardiology input regarding BP.
--- NOTE | 2016-12-02 22:25 | Cons- Cardiology ---
General Information and HPI Consulting Request Date of Consult: 12/02/16 Requested By: C[place]AND GOMEZ MD History of Present Illness: This patient is a 41 year old female with history of hypertension, SVT s/p ablation and coronary artery disease s/p PCI. She also has a history of pituitary tumor s/p resection. She presented to the ER for evaluation of hypertension that was noted by her own measurements to be about 200/100mmHg. She has noted headaches and dizziness but otherwise was free of any visual problems or change in renal function. She has some minimal precordial chest discomfort with no clear exertional component to it. At baseline, she is not very active and physical activity will elicit shortness of breath. The patient cannot walk well enought to have a treadmill stress test and refuses a pharmacologic stress test due to a bad experience on her last stress test. Allergies/Medications Allergies: Coded Allergies: clarithromycin (From Biaxin) (Severe, HIVES ON TONGUE AND BACK OF THROAT ) cefaclor (BAD STOMACH PAIN 07/02/16) ciprofloxacin (From Cipro) (BAD STOMACH PAIN 07/02/16) Home Med List: Albuterol Sulfate 2.5 MG/3 ML (0.083 %) VIAL.NEB 1 Vial INH/STEVENSON Q4P PRN RESPIRATORY (Reported) Albuterol Sulfate (Proair Hfa) 90 MCG HFA.AER.AD 2 PUF INH PRN RESPIRATORY ( Reported) Aspirin (Aspirin*) 81 MG TAB.CHEW 1 TAB PO DAILY HEART (Reported) Atorvastatin Calcium (Lipitor) 40 MG TABLET 1 TAB PO DAILY CHOLESTEROL ( Reported) Biotin 800 MCG TABLET 1 TAB PO DAILY SUPPLEMENT (Reported) Furosemide (Lasix) 20 MG TABLET 1-3 TAB PO PRN DIURETIC (Reported) Ibuprofen 800 MG TABLET 1 TAB PO TID PAIN (Reported) Lisinopril 40 MG TABLET 1 TAB PO DAILY BP (Reported) Metformin HCl (Glucophage) 1,000 MG TABLET 1 TAB PO DAILY DM (Reported) Metoprolol Succinate 100 MG TAB.ER.24H 1 TAB PO BID HEART/BP (Reported) Mometasone/Formoterol (Dulera 200 Mcg/5 Mcg Inhaler) 200 MCG-5 MCG/ACTUATION HFA.AER.AD 2 PUF INH PRN RESP. (Reported) Multivitamin (Multiple Vitamins) 1 EACH TABLET 1 TAB PO DAILY SUPPLEMENT ( Reported) Sutton-3 Fatty Acids/Fish Oil (Fish Oil 1,000 MG Softgel) (Unknown Strength) CAPSULE (Unknown Dose) PO DAILY SUPPLEMENT (Reported) Oxycodone HCl 10 MG TABLET 1 TAB PO 4XDAILY PAIN (Reported) Past History Travel History Traveled to [place] past 21 day No Medical History Blood Transfusion Hx: No Neurological: NONE EENT: otitis media Cardiovascular: CHF, SVT heart disease CARDIAC ABLATION Respiratory: asthma, bronchitis, COPD Gastrointestinal: NONE Hepatic: NONE Renal: NONE Musculoskeletal: chronic back pain, SLIPPED DISK PROTRUDING DISK COMPRESSED DISKS Psychiatric: NONE Endocrine: diabetes Blood Disorders: NONE Cancer(s): NONE 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 Home Who Do You Live With? spouse Services at Home: None Smoking Status: Current Everyday Smoker ETOH Use: denies use Illicit Drug Use: marijuana Functional Ability ADLs Independent: dressing, eating, toileting, bathing. Ambulation: independent IADLs Independent: shopping, housework, finances, food prep, telephone, transportation , medication admin. Exam & Diagnostic Data Vital Signs and I&O Vital Signs Date Time Temp Pulse Resp B/P B/P Pulse O2 O2 Flow FiO2 Mean Ox Delivery Rate 12/02 2208 98.6 54 20 180/90 95 Room Air 12/02 2033 60 210/90 12/02 1818 180/88 12/02 1641 60 200/90 12/02 1444 98.2 56 20 180/90 93 Room Air 12/02 1113 186/100 12/02 0857 60 200/100 12/02 0857 60 200/100 12/02 0857 60 200/100 12/02 0852 200/100 12/02 0640 97.6 53 20 180/100 97 Room Air 12/02 0050 53 182/96 12/02 0021 55 200/100 12/02 0010 50 200/100 12/01 2347 48 200/100 12/01 2249 98.3 60 20 210/90 96 Room Air Intake & Output 12/02 1600 12/02 0800 12/02 0000 12/01 1600 12/01 0800 12/01 0000 Intake Total 480 480 250 0 Output Total 800 Balance -800 480 480 250 0 Intake, IV 0 Intake, Oral 480 480 250 0 Number 0 Bowel Movements Output, Urine 800 Patient 310 lb 310 lb Weight Weight Reported by Patient Reported by Patient Measurement Method Physical Exam: General: WD/Obese female n NAD; alert and oriented x 3 HEENT: NC/AT, PERRL, EOMI Neck: no JVD, no carotid bruit Heart: RRR w/o murmur Lungs: clear bilaterally ABdomen: soft, obese, NT, +ve bowel sounds Extremities: no edema Diagnostic Data EKG Results sinus rhythm Assessment/Plan Assessment/Plan * This patient has chest discomfort that is beyond her baseline and, considering her risk factors, should be risk stratified with a pharmacologic stress test. The patient, at present, refuses a stress test however. Risk factor management should be pursued including smoking cessation, weight loss with optimization of her lipid profile, good control of blood glucose and control of blood pressure. * Obtain an echocardiogram to look for overall EF, regional wall motion abnormalities and myocardial thickening. * Continue aspirin and a statin. Continue her current dose of beta arpit. Increase Lisinopril to 40mg BID. DC amlodipine and begin Nifedipine ER 30mg daily. Continue her diuretic. * This patient is severely hypertensive on multiple medications. We should look for secondary causes of hypertension including renal artery stenosis. Obtain a renal artery ultrasound. * Low calorie and low sodium diet. Consult Acknowledgment - Thank you for your consult request.
[2016-12-03 07:42] VITALS: BP 172/84
--- NOTE | 2016-12-03 08:32 | PN- Housestaff ---
See Addendum Subjective Follow-up For: #1 hypertensive urgency #2 diabetes #3 back pain Complaints: no complaints Tele-Events Since Last Visit: Sinus bradycardia at 4651 Subjective: I personally seen the patient. She was sitting in bed in no acute distress. On room air Review of Systems Constitutional: Denies: see HPI. Cardiovascular: Denies: no symptoms. Respiratory: Denies: no symptoms. Gastrointestinal: Denies: no symptoms. Objective Last 24 Hrs of Vital Signs/I&O Vital Signs Date Time Temp Pulse Resp B/P B/P Pulse O2 O2 Flow FiO2 Mean Ox Delivery Rate 12/03 0914 190/90 12/03 0913 58 190/90 12/03 0912 58 190/90 12/03 0742 98.2 59 20 172/84 96 Room Air 12/03 0000 Room Air 12/02 2320 48 174/76 12/02 2208 98.6 54 20 180/90 95 Room Air 12/02 2033 60 210/90 12/02 1818 180/88 12/02 1641 60 200/90 12/02 1444 98.2 56 20 180/90 93 Room Air 12/02 1113 186/100 Intake & Output 12/03 1600 12/03 0800 12/03 0000 Intake Total 480 480 Output Total Balance 480 480 Intake, Oral 480 480 Number 0 Bowel Movements Physical Exam General Appearance: Alert, Oriented X3, Cooperative, No Acute Distress Skin: No Rashes, No Breakdown, No Significant Lesion HEENT: Atraumatic, PERRLA, EOMI, Mucous Membr. moist/pink Cardiovascular: Regular Rate, Normal S1, Normal S2, No Murmurs Lungs: hard to assess due to the patient body habitus Abdomen: Normal Bowel Sounds, Soft, No Tenderness Extremities: No Clubbing, No Cyanosis, No Edema Vascular: Normal Pulses, Pulses Symmetrical Assessment/Plan Assessment: 41 y lady with PMH of pituitary tumor s/p resection, HTN,DM, SVT s/p ablation, CAD s/p cardiac cath, COPD, bronchitis, chronic back pain and anxiety who was admitted with CC of dizziness and high blood pressure . On admission the Patient reported that she was doing her routine work when she noticed dizziness and when she checked her blood pressure it was higher than her baseline blood pressure( SBP 150mmHg). She denied any chest pain, nausea, vomiting, vision changes, headaches, abdominal pain, loss of consciousness, numbness, weakness and dysuria. She also reported that she has H/O headaches two days back that was intermittent and also having H/O chest pain intermittently for which she went to ED twice in last couple of days. She has H/O of back pain taht's 5/10, sharp apin and 8/10 on touching or movement. Vitals on admission: temp 97.0 , pulse 60/min, 210/98, o2 sat 98% Labs on admission: wbc 12.7, Hb 15, hct 46, Na 138, k 4.4, Cr 0.7, BUN 13, GLUCOSE 153, Ca 9.1, ferritin 143, ALT 62, AST 29, TROP <0.01, LIPASE 68 EKG: LVH CT abdomen:IMPRESSION: 1. No acute findings within the abdomen or pelvis to explain patient symptomatology. 2. Stable moderate hepatomegaly, with the liver visualized measuring approximately 27.5 cm in length. There is diffuse low-attenuation of the liver parenchyma, indicative of diffuse hepatic steatosis. 3. Stable mild splenomegaly. 4. Nonvisualization of the appendix. No acute inflammatory changes within the right lower quadrant of the abdomen. # Hypertensive urgency: -This patient has chest discomfort that is beyond her baseline and, considering her risk factors, should be risk stratified with a pharmacologic stress test. - The patient, at present, refuses a stress test however. -Risk factor management should be pursued including smoking cessation, weight loss with optimization of her lipid profile, good control of blood glucose and control of blood pressure. -will Obtain an echocardiogram to look for overall EF, regional wall motion abnormalities and myocardial thickening. -Continue aspirin and a statin. Continue her current dose of beta arpit. Increase Lisinopril to 40mg BID. DC amlodipine and begin Nifedipine ER 30mg daily. Continue her diuretic. -This patient is severely hypertensive on multiple medications, We should look for secondary causes of hypertension including renal artery stenosis. Obtain a renal artery ultrasound. -Low calorie and low sodium diet. ? Hypogonadotrophic hypogonadism -She has had pituitary tumor removed in 2008 and hasn't been on the hormone replacement. - am cortisol 4.9, ACTH pending; - LH 1.9 and Estradiol 21.5--consistent with hypogonadotrophic hypogonadism. - TSH 1.66, free T4 1.00-- normal TFT -prolactin 14.4; -IGF-1 pending -Patient had a cortisol stimulation test done this morning. -As above the patient has hypogonadotrophic hypogonadism but she is also on chronic pain medicine can cause this disorder. Therefore it is difficult to discern whether her lack of estrogen is due to resection of the pituitary tumor versus chronic narcotic pain medicine which can suppress the pituitary gonadal axis. -Repeat MRI on outpatient #DIABETES: stop metformin for now start insulin consult endo HbA1c #BACK PAIN: continue oxycodone follow painn score #ANXIETY: continue alprazolam DVT PROPHYLAXIS: mechanical and heparin CODE STATUS: full code Problem List: 1. Hypertensive urgency 2. Chronic back pain 3. Anxiety 4. Hyperlipidemia 5. Morbid obesity 6. Diabetes mellitus 7. History of supraventricular tachycardia 8. Hypertension 9. Bronchitis Pain Ratin Pain Location: back Pain Goal: Pain 4 or less Pain Plan: tylenol oxycodone Tomorrow's Labs & Rationales: cbc bep DVT/Prophylaxis: pharmacological Consulting Request: Consulting Specialty: Endocrinology
--- NOTE | 2016-12-03 08:41 | PN- Endocrinology ---
Assessment/Plan Assessment: 41 y/o female with PMH of pituitary tumor s/p resection in 2008, HTN,DM nyla 2, SVT s/p ablation, CAD s/p cardiac cath, COPD, bronchitis, chronic back pain and anxiety came in the ED with CC of dizziness and high blood pressure with BP of 210/98 in ER. Currently she is on Lisinopril 40 mg daily, metoprolol 100 mg twice a day and Amlodipine 10 mg daily. Although previous CT of abdomen showed unremarkable adrenal glands. Adrenal hormonal work-up was recommended. She is in the process of collecting 24 hours urine. She has had pituitary tumor removed in 2008 and hasn't been on the hormone replacement. 1. am cortisol 4.9, ACTH pending; 2. LH 1.9 and Estradiol 21.5--consistent with hypogonadotrophic hypogonadism. 3. TSH 1.66, free T4 1.00-- normal TFT 4. prolactin 14.4; 5. IGF-1 pending Patient had a cortisol stimulation test done this morning. So far the cortisol level at one half hour is 21.9 which is a normal test. We are awaiting the one- hour value. As above the patient has hypogonadotrophic hypogonadism but she is also on chronic pain medicine can cause this disorder. Therefore it is difficult to discern whether her lack of estrogen is due to resection of the pituitary tumor versus chronic narcotic pain medicine which can suppress the pituitary gonadal axis. Plan: We need to awaity one-hour value of the cortisol stimulation test. So far it appears that the patient's test is going to be normal The patient does not make estrogen but this can be dealt with as an outpatient. The patient's urine testing for pheochromocytoma is pending. Subjective Subjective: Feels okay Review of Systems Constitutional: Denies: fever. Cardiovascular: Denies: chest pain. Respiratory: Denies: short of breath. Gastrointestinal: Denies: abdominal pain, vomiting. Skin: Reports: no symptoms. Objective Last 24 Hrs of Vital Signs/I&O Vital Signs Date Time Temp Pulse Resp B/P B/P Pulse O2 O2 Flow FiO2 Mean Ox Delivery Rate 12/03 0742 98.2 59 20 172/84 96 Room Air 12/03 0000 Room Air 12/02 2320 48 174/76 12/028 98.6 54 20 180/90 95 Room Air 12/02 2033 60 210/90 12/02 1818 180/88 12/02 1641 60 200/90 12/02 1444 98.2 56 20 180/90 93 Room Air 12/02 1113 186/100 12/02 0857 60 200/100 12/02 0857 60 200/100 12/02 0857 60 200/100 12/02 0852 200/100 Intake & Output 12/03 1600 12/03 0800 12/03 0000 Intake Total 480 480 Output Total Balance 480 480 Intake, Oral 480 480 Number 0 Bowel Movements Physical Exam Head: normal appearance Respiratory: normal breath sounds Cardiovascular: regular rate/rhythm Abdomen: normal bowel sounds, soft Extremities: normal inspection Current Medications: Current Medications Sig/Brandon Start time Last Medication Dose Route Stop Time Status Admin Acetaminophen 650 MG Q6P PRN 12/01 0015 AC 12/01 PO 0652 Alprazolam 0.25 MG ONCE ONE 12/02 2100 DC 12/02 PO 12/02 2101 2110 Amlodipine Besylate 10 MG DAILY 12/03 1000 AC PO Amlodipine Besylate 5 MG ONCE ONE 12/02 1545 DC 12/02 PO 12/02 1546 1641 Amlodipine Besylate 5 MG DAILY 12/01 0130 DC 12/02 PO 0857 Aspirin 81 MG DAILY 12/01 1000 AC 12/02 PO 0857 Atorvastatin Calcium 40 MG 1700 12/01 1700 AC 12/02 PO 1640 Budesonide/ 2 PUF BID 12/01 1000 AC Formoterol Fumarate INH Cosyntropin 0.25 MG 0630 12/03 0630 DC 12/03 IV 12/03 0631 0632 Fish Oil 1,050 MG DAILY 12/01 1000 AC 12/02 PO 0857 Furosemide 20 MG DAILY 12/04 1000 AC PO Heparin Sodium 5,000 UNIT Q8 12/01 0600 AC 12/01 (Porcine) SC 0652 Ibuprofen 400 MG Q4P PRN 12/02 1145 AC 12/03 PO 0551 Insulin Aspart 0 TIDAC 12/01 0800 AC 12/02 SC 1802 Lisinopril 40 MG 0800 12/01 0800 AC 12/02 PO 0857 Metoprolol Succinate 100 MG BID 12/01 1000 AC 12/02 PO 2033 Multivitamins 1 TAB DAILY 12/01 1000 AC 12/02 Therapeutic PO 0856 Nicotine 21 MG DAILY 12/02 1327 AC 12/02 TOP 1511 Oxycodone HCl 15 MG Q4P PRN 12/02 1145 AC 12/02 PO 1339 Oxycodone HCl 10 MG Q6 12/01 0600 12/03 PO 0551 Results Pertinent Lab/Meet Results: Laboratory Tests 12/03 12/03 12/03 12/03 12/03 0735 0735 0659 0659 0603 Chemistry Cortisol AM Sample (4.46 - 22.7 ug/dL) Pending 21.4 Pending ACTH Stimulation Pending Pending 12/03 12/02 12/02 0603 1650 1650 Chemistry ACTH Stimulation Pending Urines Urine Total Volume Pending Urine Free Cortisol Pending Urine Creatinine Pending Urine Total Volume Pending Ur Epinephrine 24 Hr Pending U Norepinephrine 24 Hr Pending Urine Total Volume Pending U Metanephrines 24 Hr Pending U Normetanephrine 24h Pending U Tot Metanephrine 24h Pending Ur Dopamine 24 Hr Pending U Tot Catecholamine 24h Pending Urine Creatinine Pending
[2016-12-03 15:19] VITALS: BP 174/68
[2016-12-03 15:28] VITALS: BP 180/86
--- NOTE | 2016-12-03 15:36 | PN- Cardiology ---
Subjective Subjective: * Patient complains of headache. * BP remains elevated. * sinus rhythm Objective Vital Signs and I&Os Vital Signs Date Time Temp Pulse Resp B/P B/P Pulse O2 O2 Flow FiO2 Mean Ox Delivery Rate 12/03 1519 52 174/68 12/03 1208 180/84 12/03 1206 180/84 12/03 0914 190/90 12/03 0913 58 190/90 12/03 0912 58 190/90 12/03 0742 98.2 59 20 172/84 96 Room Air 12/03 0000 Room Air 12/02 2320 48 174/76 12/02 2208 98.6 54 20 180/90 95 Room Air 12/02 2033 60 210/90 12/02 1818 180/88 12/02 1641 60 200/90 Intake & Output 12/03 1600 12/03 0800 12/03 0000 12/02 1600 12/02 0800 12/02 0000 Intake Total 480 480 480 480 Output Total 800 Balance 480 480 -800 480 480 Intake, Oral 480 480 480 480 Number 0 Bowel Movements Output, Urine 800 Physical Exam: General: WD/Obese female n NAD; alert and oriented x 3 Neck: no JVD, no carotid bruit Heart: RRR w/o murmur Lungs: clear bilaterally Extremities: no edema Assessment/Plan Assessment/Plan * Increase Nifedipine to 60mg daily. Obtain labs to evaluate for pheochromocytoma and hyperaldosteronism. Check a 24 hour urine for total creatinine, catecholamines, vanillylmandelic acid, metanephrines. Check an aldosterone level and renin level. * We will try to bring this patient's blood pressure down to about 160mmHg systolic today. * Low sodium diet. * Obtain an echocardigram. Continue telemetry? Yes
--- NOTE | 2016-12-03 16:05 | ULTRASOUND REPORT ---
EXAMINATION: ULTRASOUND RENAL WITH DOPPLER CLINICAL INFORMATION: 41-year-old female with hypertension. Evaluate for renal artery stenosis. COMPARISON: None. TECHNIQUE: Real-time grayscale, color Doppler, and duplex Doppler evaluation of the kidneys and renal vasculature was performed. FINDINGS: Significantly limited evaluation secondary to patient body habitus and overlying bowel gas. RENAL MEASUREMENTS: Right: 12.5 x 5.2 x 6.0 cm (Sag x AP x TV) Left: 12.9 x 5.2 x 4.9 cm (Sag x AP x TV) The renal parenchyma appears grossly unremarkable. No hydronephrosis or nephrolithiasis. DOPPLER INTERROGATION: Aorta: 29.7 cm/sec Right Main Renal Artery: Proximal: Not visualized Mid: Not visualized Distal: 106 cm/sec Left Main Renal Artery: Proximal: Not visualized Mid: 80.4 cm/sec Distal: 69.8 cm/sec Renal-Aortic Ratio (RAR): Right: 3.5 Left: 2.7 IMPRESSION: Significantly limited evaluation secondary to patient body habitus and overlying bowel gas. The proximal renal arteries were not visualized. Distal renal arteries demonstrate normal peak systolic velocities. Further evaluation can be obtained with CTA, if clinically indicated.
[2016-12-03 22:04] VITALS: BP 180/84
[2016-12-04 06:44] VITALS: BP 154/74
[2016-12-04 08:19] LABS: ABSOLUTE BASOPHIL COUNT 0 /CUMM (0.0-0.2); ABSOLUTE EOSINOPHIL COUNT 0.3 /CUMM (0.0-0.7); ABSOLUTE GRANULOCYTE CT 7.5 /CUMM (1.4-6.5); ABSOLUTE LYMPH COUNT 3.6 /CUMM (1.2-3.4); ABSOLUTE MONOCYTE COUNT 0.8 /CUMM (0.10-0.60); BASOPHIL % 0.3 % (0.0-2.0); EOSINOPHIL % 2.3 % (0-5); GRANULOCYTE % 61.6 % (42.2-75.2); HEMATOCRIT 44.3 % (37-47); MEAN CORPUSCULAR HGB 25.2 PG (27.0-31.0); MEAN CORPUSCULAR HGB CONC 32.9 G/DL (33.0-37.0); MEAN CORPUSCULAR VOLUME 76.7 FL (81.0-99.0); MEAN PLATELET VOLUME 7.5 FL (7.4-10.4); PLATELET COUNT 230 /CUMM (130-400); RBC DISTRIBUTION WIDTH 25.8 % (11.5-14.5); RED BLOOD CELL CT 5.78 /CUMM (4.20-5.40); WHITE BLOOD CELL COUNT 12.2 /CUMM (4.8-10.8)
--- NOTE | 2016-12-04 09:21 | PN- Endocrinology ---
Assessment/Plan Assessment: 41 y/o female with PMH of pituitary tumor s/p resection in 2008, HTN,DM nyla 2, SVT s/p ablation, CAD s/p cardiac cath, COPD, bronchitis, chronic back pain and anxiety came in the ED with CC of dizziness and high blood pressure with BP of 210/98 in ER. Currently she is on Lisinopril 40 mg daily, metoprolol 100 mg twice a day and Amlodipine 10 mg daily. Although previous CT of abdomen showed unremarkable adrenal glands. Adrenal hormonal work-up was recommended. She is in the process of collecting 24 hours urine. She has had pituitary tumor removed in 2008 and hasn't been on the hormone replacement. 1. am cortisol 4.9, ACTH pending; 2. LH 1.9 and Estradiol 21.5--consistent with hypogonadotrophic hypogonadism. 3. TSH 1.66, free T4 1.00-- normal TFT 4. prolactin 14.4; 5. IGF-1 pending Patient had a cortisol stimulation test done yesterday morning. So far the cortisol level at one half hour is 21.9 and then 25.9 at one hour. This is a normal test. As above the patient has hypogonadotrophic hypogonadism but she is also on chronic pain medicine can cause this disorder. Therefore it is difficult to discern whether her lack of estrogen is due to resection of the pituitary tumor versus chronic narcotic pain medicine which can suppress the pituitary gonadal axis. The patient's blood pressure is improved this morning. Plan: The patient does not need replacement for her adrenal. Her Cortrosyn stimulation test is normal. So far we have found normal thyroid tests and hypogonadotropic hypogonadism. However it is difficult to discern as mentioned above whether this is due to chronic narcotic pain medicine which can suppress the pituitary gonadal axis or whether it is due to pituitary disease. As an outpatient the patient can consider estrogen replacement therapy after the risks versus benefits are explained to her. Subjective Subjective: Feels okay Review of Systems Constitutional: Denies: chills, fever. Cardiovascular: Denies: chest pain. Respiratory: Denies: cough, short of breath. Gastrointestinal: Denies: nausea, vomiting. Skin: Reports: no symptoms. Objective Last 24 Hrs of Vital Signs/I&O Vital Signs Date Time Temp Pulse Resp B/P B/P Pulse O2 O2 Flow FiO2 Mean Ox Delivery Rate 12/04 0903 50 154/74 12/04 0903 50 154/74 12/04 0644 96.7 50 20 154/74 96 Room Air 12/03 2204 97.8 56 20 180/84 94 12/03 2158 57 180/86 12/03 2157 57 180/86 12/03 1528 98.1 57 20 180/86 95 Room Air 12/03 1519 52 174/68 12/03 1208 180/84 12/03 1206 180/84 12/03 0914 190/90 12/03 0913 58 190/90 Intake & Output 12/04 1600 12/04 0800 12/04 0000 Intake Total 920 Output Total 800 Balance 120 Intake, Oral 920 Output, Urine 800 Vital Signs Date Time Temp Pulse Resp B/P B/P Pulse O2 O2 Flow FiO2 Mean Ox Delivery Rate 12/04 0903 50 154/74 12/04 0903 50 154/74 12/04 0644 96.7 50 20 154/74 96 Room Air 12/03 2204 97.8 56 20 180/84 94 12/03 2158 57 180/86 12/03 2157 57 180/86 12/03 1528 98.1 57 20 180/86 95 Room Air 12/03 1519 52 174/68 12/03 1208 180/84 12/03 1206 180/84 12/03 0914 190/90 12/03 0913 58 190/90 Intake & Output 12/04 1600 12/04 0800 12/04 0000 Intake Total 920 Output Total 800 Balance 120 Intake, Oral 920 Output, Urine 800 Physical Exam General Appearance: alert, awake, comfortable Head: normal appearance Neck: normal inspection Respiratory: normal breath sounds Cardiovascular: regular rate/rhythm Extremities: normal inspection Current Medications: Current Medications Sig/Brandon Start time Last Medication Dose Route Stop Time Status Admin Acetaminophen 650 MG Q6P PRN 12/01 0015 AC 12/01 PO 0652 Amlodipine Besylate 10 MG DAILY 12/03 1000 DC PO Aspirin 81 MG DAILY 12/01 1000 AC 12/04 PO 09 Atorvastatin Calcium 40 MG 1700 12/01 1700 AC 12/03 PO 2000 Budesonide/ 2 PUF BID 12/01 1000 AC Formoterol Fumarate INH Fish Oil 1,050 MG DAILY 12/01 1000 AC 12/04 PO 09 Furosemide 20 MG DAILY 12/04 1000 DC PO Furosemide 20 MG DAILY 12/03 1030 AC 12/03 PO 1209 Heparin Sodium 5,000 UNIT Q8 12/01 0600 AC 12/01 (Porcine) SC 0652 Hydralazine HCl 5 MG ONCE ONE 12/03 1015 DC 12/03 IV 12/03 1016 1206 Ibuprofen 400 MG Q4P PRN 12/02 1145 AC 12/03 PO 1551 Insulin Aspart 0 TIDAC 12/01 0800 AC 12/02 SC 1802 Lisinopril 40 MG BID 12/03 2200 AC 12/04 PO 0903 Lisinopril 40 MG 0800 12/01 0800 DC 12/03 PO 0913 Metoprolol Succinate 100 MG BID 12/01 1000 AC 12/04 PO 0903 Multivitamins 1 TAB DAILY 12/01 1000 AC 12/04 Therapeutic PO 0903 Nicotine 21 MG DAILY 12/02 1327 AC 12/02 TOP 1511 Nifedipine 60 MG DAILY 12/04 1000 AC PO Nifedipine 30 MG DAILY 12/03 1022 DC 12/03 PO 1208 Oxycodone HCl 15 MG Q4P PRN 12/02 1145 AC 12/04 PO 0804 Oxycodone HCl 10 MG Q6 12/01 0600 AC 12/04 PO 0633 Results Pertinent Lab/Meet Results: Laboratory Tests 12/04 0715 Chemistry Sodium (137 - 145 mmol/L) 139 Potassium (3.5 - 5.1 mmol/L) 4.1 Chloride (98 - 107 mmol/L) 100 Carbon Dioxide (22 - 30 mmol/L) 31 H Anion Gap (5 - 16) 8 BUN (7 - 17 mg/dL) 18 H Creatinine (0.5 - 1.0 mg/dL) 0.6 Estimated GFR (>60 ml/min) > 60 BUN/Creatinine Ratio (7 - 25 %) 30.0 H Hematology CBC w Diff Pending WBC Pending RBC Pending Hgb Pending Hct Pending MCV Pending MCH Pending RDW Pending Plt Count Pending MPV Pending PUBS MCHC Pending
--- NOTE | 2016-12-04 12:00 | PN- Cardiology ---
Subjective Subjective: * Patient continues to have a mild, intermittent headeache. * She is concerned about taking new medications and would like to continue on Nifedipine ER 30mg daily another day before raising the dose. BP is improved but not yet in the ideal range. * Her renal ultrasound was suboptimal and inconclusive. * sinus rhythm Objective Vital Signs and I&Os Vital Signs Date Time Temp Pulse Resp B/P B/P Pulse O2 O2 Flow FiO2 Mean Ox Delivery Rate 12/04 0903 50 154/74 12/04 0903 50 154/74 12/04 0644 96.7 50 20 154/74 96 Room Air 12/03 2204 97.8 56 20 180/84 94 12/03 2158 57 180/86 12/03 2157 57 180/86 12/03 1528 98.1 57 20 180/86 95 Room Air 12/03 1519 52 174/68 12/03 1208 180/84 12/03 1206 180/84 Intake & Output 12/04 1600 12/04 0800 12/04 0000 12/03 1600 12/03 0800 12/03 0000 Intake Total 100 200 720 480 480 Output Total 800 Balance 100 200 -80 480 480 Intake, Oral 100 200 720 480 480 Number 0 Bowel Movements Output, Urine 800 Physical Exam: General: WD/Obese female n NAD; alert and oriented x 3 Neck: no JVD, no carotid bruit Heart: RRR w/o murmur Lungs: clear bilaterally Extremities: no edema Assessment/Plan Assessment/Plan * Increase Nifedipine to 60mg daily tomorrow if she continues to be hypertensive. Our goal at this point is 120mmHg systolic. The patient would like to go a bit slower in reaching her BP goals and we will try an accomodate her. Obtain labs to evaluate for pheochromocytoma and hyperaldosteronism. Check a 24 hour urine for total creatinine, catecholamines, vanillylmandelic acid, metanephrines. Check an aldosterone level and renin level. * Low sodium diet. * Obtain an echocardigram. * Obtain a CT angiogram to assess for renal artery stenosis. Continue telemetry? Yes
[2016-12-04 14:54] VITALS: BP 150/70
--- NOTE | 2016-12-04 19:28 | PN- Housestaff ---
GLEN GONZALEZ MD 12/04/161912: Subjective Follow-up For: #1 hypertensive urgency #2 diabetes #3 back pain Complaints: PATIENT STATES THAT SHE IS DIZZY AND IS HAVING RINGING IN HER EARS WHICH HAS GONE ON FOR QUITE A WHILE. Tele-Events Since Last Visit: SINUS BRADYCARDIA 45-50 NO EVENTS Subjective: Patient states that she is okay but is feeling dizzy which is a chronic problem. She states that she took her nicotine patch off due to anxiety. She has been trying to walk on the floors. She states that she is having some type of back pain although an "electric nature". Review of Systems Constitutional: Reports: see HPI. Objective Last 24 Hrs of Vital Signs/I&O Vital Signs Date Time Temp Pulse Resp B/P B/P Pulse O2 O2 Flow FiO2 Mean Ox Delivery Rate 12/04 1454 99.2 54 20 150/70 94 Room Air 12/04 1215 78 158/82 12/04 1208 78 158/82 12/04 0903 50 154/74 12/04 0903 50 154/74 12/04 0644 96.7 50 20 154/74 96 Room Air 12/03 2204 97.8 56 20 180/84 94 12/03 2158 57 180/86 12/03 2157 57 180/86 Intake & Output 12/04 1600 12/04 0800 12/04 0000 Intake Total 650 100 920 Output Total 800 Balance 650 100 120 Intake, Oral 650 100 920 Output, Urine 800 Physical Exam General Appearance: Alert, Oriented X3, Cooperative, No Acute Distress Skin: No Rashes, No Breakdown, No Significant Lesion Skin Temp/Moisture Exam: Warm/Dry Sepsis Skin Exam (color): Normal for Ethnicity HEENT: Atraumatic, PERRLA, EOMI Neck: Supple Cardiovascular: Regular Rate, Normal S1, Normal S2, No Murmurs, Gallops, Rubs Lungs: Clear to Auscultation, Normal Air Movement Abdomen: Normal Bowel Sounds, Soft, No Tenderness Neurological: Normal Gait, Normal Speech, Reflexes 2+ Extremities: No Clubbing, No Cyanosis, No Edema, Normal Pulses Current Medications: Current Medications Sig/Brandon Start time Last Medication Dose Route Stop Time Status Admin Acetaminophen 650 MG Q6P PRN 12/01 0015 AC 12/01 PO 0652 Aspirin 81 MG DAILY 12/01 1000 AC 12/04 PO 0902 Atorvastatin Calcium 40 MG 1700 12/01 1700 AC 12/04 PO 1615 Azithromycin 250 MG 1500 12/05 1500 AC PO 12/08 1501 Azithromycin 500 MG 1500 12/04 1500 DC 12/04 PO 12/04 1501 1615 Budesonide/ 2 PUF BID 12/01 1000 AC Formoterol Fumarate INH Fish Oil 1,050 MG DAILY 12/01 1000 AC 12/04 PO 0902 Furosemide 20 MG DAILY 12/03 1030 AC 12/04 PO 1208 Heparin Sodium 5,000 UNIT Q8 12/01 0600 AC 12/01 (Porcine) SC 0652 Ibuprofen 400 MG Q4P PRN 12/02 1145 AC 12/03 PO 1551 Insulin Aspart 0 TIDAC 12/01 0800 AC 12/04 SC 1212 Lisinopril 40 MG BID 12/03 2200 AC 12/04 PO 0903 Metoprolol Succinate 100 MG BID 12/01 1000 AC 12/04 PO 0903 Multivitamins 1 TAB DAILY 12/01 1000 AC 12/04 Therapeutic PO 0903 Nicotine 21 MG DAILY 12/02 1327 AC 12/02 TOP 1511 Nifedipine 60 MG DAILY 12/04 1000 AC PO Oxycodone HCl 15 MG Q4P PRN 12/02 1145 AC 12/04 PO 1616 Oxycodone HCl 10 MG Q6 12/01 0600 AC 12/04 PO 1825 Last 24 Hrs of Lab/Meet Results Last 24 Hrs of Labs/Mics: Laboratory Tests 12/04/16 0715: Anion Gap 8, Estimated GFR > 60, BUN/Creatinine Ratio 30.0 H, CBC w Diff NO MAN DIFF REQ, RBC 5.78 H, MCV 76.7 L, MCH 25.2 L, RDW 25.8 H, MPV 7.5, Gran % 61.6, Lymphocytes % 29.1, Monocytes % 6.7, Eosinophils % 2.3, Basophils % 0.3, Absolute Granulocytes 7.5 H, Absolute Lymphocytes 3.6 H, Absolute Monocytes 0.8 H, Absolute Eosinophils 0.3, Absolute Basophils 0, PUBS MCHC 32.9 L Assessment/Plan Assessment: 41 y lady with PMH of pituitary tumor s/p resection, HTN,DM, SVT s/p ablation, CAD s/p cardiac cath, COPD, bronchitis, chronic back pain and anxiety who was admitted with CC of dizziness and high blood pressure . On admission the Patient reported that she was doing her routine work when she noticed dizziness and when she checked her blood pressure it was higher than her baseline blood pressure( SBP 150mmHg). She denied any chest pain, nausea, vomiting, vision changes, headaches, abdominal pain, loss of consciousness, numbness, weakness and dysuria. She also reported that she has H/O headaches two days back that was intermittent and also having H/O chest pain intermittently for which she went to ED twice in last couple of days. She has H/O of back pain taht's 5/10, sharp apin and 8/10 on touching or movement. Patient is stating that she has ear pain and a probable ear infection due to her recent tooth pull as well as a sinus infection Vitals on admission: temp 97.0 , pulse 60/min, 210/98, o2 sat 98% Labs on admission: wbc 12.7, Hb 15, hct 46, Na 138, k 4.4, Cr 0.7, BUN 13, GLUCOSE 153, Ca 9.1, ferritin 143, ALT 62, AST 29, TROP <0.01, LIPASE 68 EKG: LVH CT abdomen:IMPRESSION: 1. No acute findings within the abdomen or pelvis to explain patient symptomatology. 2. Stable moderate hepatomegaly, with the liver visualized measuring approximately 27.5 cm in length. There is diffuse low-attenuation of the liver parenchyma, indicative of diffuse hepatic steatosis. 3. Stable mild splenomegaly. 4. Nonvisualization of the appendix. No acute inflammatory changes within the right lower quadrant of the abdomen. # Hypertensive urgency: -This patient has chest discomfort that is beyond her baseline and, considering her risk factors, should be risk stratified with a pharmacologic stress test. - The patient, at present, refuses a stress test however. -Risk factor management should be pursued including smoking cessation, weight loss with optimization of her lipid profile, good control of blood glucose and control of blood pressure. -will Obtain an echocardiogram to look for overall EF, regional wall motion abnormalities and myocardial thickening. -Continue aspirin and a statin. Continue her current dose of beta arpit. Increase Lisinopril to 40mg BID. DC amlodipine and begin Nifedipine ER 30mg daily. Continue her diuretic. -This patient is severely hypertensive on multiple medications, We should look for secondary causes of hypertension including renal artery stenosis. Obtain a renal artery ultrasound. -Low calorie and low sodium diet. ? Hypogonadotrophic hypogonadism -She has had pituitary tumor removed in 2008 and hasn't been on the hormone replacement. - am cortisol 4.9, ACTH pending; - LH 1.9 and Estradiol 21.5--consistent with hypogonadotrophic hypogonadism. - TSH 1.66, free T4 1.00-- normal TFT -prolactin 14.4; -IGF-1 pending -Patient had a cortisol stimulation test done this morning. -As above the patient has hypogonadotrophic hypogonadism but she is also on chronic pain medicine can cause this disorder. Therefore it is difficult to discern whether her lack of estrogen is due to resection of the pituitary tumor versus chronic narcotic pain medicine which can suppress the pituitary gonadal axis. -Repeat MRI on outpatient #BACK PAIN: continue oxycodone follow painn score #ANXIETY: continue alprazolam #Questionable sinus infection She is requesting Zithromax. DVT PROPHYLAXIS: mechanical and heparin CODE STATUS: full code Problem List: 1. History of supraventricular tachycardia 2. Diabetes mellitus 3. Morbid obesity 4. Chronic back pain 5. Hyperlipidemia 6. Anxiety 7. Hypertension 8. Hypertensive urgency 9. Chronic pain Pain Ratin Pain Location: Back pain Pain Goal: Pain 4 or less Pain Plan: Tylenol and oxycodone Tomorrow's Labs & Rationales: Follow-up pituitary and adrenal levels Consulting Request: Consulting Specialty: Endocrinology C[place]AND GOMEZ MD 12/04/16 2648: Attending MD Review Statement Attending Statement Attending MD Statement: examined this patient, discuss w/resident/PA/FAMILY COURT COUNSELLOR, agreed w/resident/PA/FAMILY COURT COUNSELLOR, reviewed EMR data (avail), discussed with nursing, reviewed images, amended to note Attending Assessment/Plan: The patient was seen and discussed with house staff. Appreciate Endocrinology follow-up. BP under much better control today. Patient c/o right ear pain similar to prior ear infections. Will treat with Zithromax Z-selvin which usually works well for her. Will not pursue renal CTA as inpatient as BP is under control at present.
[2016-12-04 20:18] VITALS: BP 168/78
[2016-12-04 22:23] VITALS: BP 150/60
[2016-12-05 00:15] VITALS: BP 146/60
[2016-12-05 09:03] LABS: ABSOLUTE BASOPHIL COUNT 0 /CUMM (0.0-0.2); ABSOLUTE EOSINOPHIL COUNT 0.3 /CUMM (0.0-0.7); ABSOLUTE GRANULOCYTE CT 8.7 /CUMM (1.4-6.5); ABSOLUTE LYMPH COUNT 2.5 /CUMM (1.2-3.4); ABSOLUTE MONOCYTE COUNT 0.7 /CUMM (0.10-0.60); BASOPHIL % 0.3 % (0.0-2.0); EOSINOPHIL % 2.5 % (0-5); GRANULOCYTE % 71.3 % (42.2-75.2); HEMATOCRIT 46.3 % (37-47); MEAN CORPUSCULAR HGB 25.3 PG (27.0-31.0); MEAN CORPUSCULAR HGB CONC 32.7 G/DL (33.0-37.0); MEAN CORPUSCULAR VOLUME 77.4 FL (81.0-99.0); MEAN PLATELET VOLUME 7.1 FL (7.4-10.4); PLATELET COUNT 221 /CUMM (130-400); RBC DISTRIBUTION WIDTH 25.8 % (11.5-14.5); RED BLOOD CELL CT 5.97 /CUMM (4.20-5.40); WHITE BLOOD CELL COUNT 12.3 /CUMM (4.8-10.8)
[2016-12-05 09:19] VITALS: BP 142/70
[2016-12-05] MEDS ORDERED: ZITHROMAX250 M2 PO (09:19)
[2016-12-05] MEDS ORDERED: PROCARDIA XL60 M1 PO (09:19)
--- NOTE | 2016-12-05 09:22 | Patient Discharge Instructions ---
Discharge Instructions General Discharge Information You were seen/treated for: high blood pressure Special Instructions: 1.please f/u with your PCP within 1 week of discharge. 2. Please f/u with your pain doctor and munitions handler supervisor within 1 week of discharge. 3. Please f/u with division merchandise manager within 2 weeks of discharge. Diet Recommended Diet: Heart Healthy Acute Coronary Syndrome Inclusion Criteria At DC or during hospital stay patient has or had the following: ACS DIAGNOSIS No Discharge Core Measures Meds if any: Prescribed or Continued at Discharge Meds if any: NOT Prescribed or Continued at Discharge Congestive Heart Failure Inclusion Criteria At DC or during hospital stay patient has or had the following: CHF DIAGNOSIS No Discharge Core Measures Meds if any: Prescribed or Continued at Discharge Meds if any: NOT Prescribed or Continued at Discharge Cerebrovascular accident Inclusion Criteria At DC or during hospital stay patient has or had the following: CVA/TIA Diagnosis No Discharge Core Measures Meds if any: Prescribed or Continued at Discharge Meds if any: NOT Prescribed or Continued at Discharge Venous thromboembolism Inclusion Criteria VTE Diagnosis No VTE Type NONE VTE Confirmed by (Test) NONE Discharge Core Measures - Per Current guidelines, there needs to be overlap - treatment for the first 5 days of Warfarin therapy. - If discharged on Warfarin prior to 5 days of - overlap therapy, the patient will need to be - assessed for post discharge needs including - *Post discharge parental anticoagulation - *Warfarin and/or parental anticoagulation education - *Follow up date to check INR post discharge At least 5 days overlap therapy as Inpatient No Meds if any: Prescribed or Continued at Discharge Note: Overlap Therapy is Warfarin and Anticoagulant Meds if any: NOT Prescribed or Continued at Discharge
[2016-12-05] MEDS ORDERED: PROCARDIA XL30 M1 PO (09:26)
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
--- NOTE | 2016-12-05 17:38 | PN- Housestaff ---
See Addendum Subjective Follow-up For: #1 hypertensive urgency #2 diabetes #3 back pain Complaints: no complaints Tele-Events Since Last Visit: This in sinus rhythm 53-80 with a low of 37. Subjective: Patient states she feels fine she is sitting in bed having breakfast Review of Systems Constitutional: Reports: no symptoms. Objective Last 24 Hrs of Vital Signs/I&O Vital Signs Date Time Temp Pulse Resp B/P B/P Pulse O2 O2 Flow FiO2 Mean Ox Delivery Rate 12/05 0919 64 142/70 12/05 0050 146/80 12/05 0015 146/60 12/04 2223 98.9 55 20 150/60 95 Room Air 12/04 2118 56 152/60 12/04 2018 68 168/78 Intake & Output 12/05 1600 12/05 0800 12/05 0000 Intake Total 880 400 800 Output Total Balance 880 400 800 Intake, Oral 880 400 800 Number 1 Bowel Movements Physical Exam General Appearance: Alert, Oriented X3, Cooperative, No Acute Distress Skin: No Rashes, No Breakdown, No Significant Lesion Skin Temp/Moisture Exam: Warm/Dry HEENT: Atraumatic, PERRLA, EOMI, Mucous Membr. moist/pink Neck: Supple Cardiovascular: Regular Rate, Normal S1, Normal S2, No Murmurs, Gallops, Rubs Lungs: Normal Air Movement Abdomen: Normal Bowel Sounds, Soft, No Tenderness, No Hepatospenomegaly Neurological: Normal Speech Extremities: No Clubbing, No Cyanosis, No Edema Vascular: Normal Pulses Sepsis Peripheral Pulse Location: Radial Sepsis Peripheral Pulse Exam: Normal Current Medications: Current Medications Sig/Brandon Start time Last Medication Dose Route Stop Time Status Admin Acetaminophen 650 MG Q6P PRN 12/01 0015 DCD 12/01 PO 0652 Alprazolam 1 MG ONCE ONE 12/04 2044 DC 12/04 PO 12/04 Aspirin 81 MG DAILY 12/01 1000 DCD 12/05 PO 0917 Atorvastatin Calcium 40 MG 1700 12/01 1700 DCD 12/04 PO 1615 Azithromycin 250 MG 1500 12/05 1500 DCD PO 12/08 1501 Budesonide/ 2 PUF BID 12/01 1000 DCD Formoterol Fumarate INH Fish Oil 1,050 MG DAILY 12/01 1000 DCD 12/05 PO 0918 Furosemide 20 MG DAILY 12/03 1030 DCD 12/05 PO 0917 Heparin Sodium 5,000 UNIT Q8 12/01 0600 DCD 12/01 (Porcine) SC 0652 Ibuprofen 400 MG Q4P PRN 12/02 1145 DCD 12/05 PO 0922 Insulin Aspart 0 TIDAC 12/01 0800 DCD 12/04 SC 1212 Lisinopril 40 MG BID 12/03 2200 DCD 12/05 PO 0919 Metoprolol Succinate 100 MG BID 12/01 1000 DCD 12/05 PO 0921 Multivitamins 1 TAB DAILY 12/01 1000 DCD 12/05 Therapeutic PO 0921 Nicotine 21 MG DAILY 12/02 1327 DCD 12/02 TOP 1511 Nifedipine 30 MG ONCE ONE 12/05 1045 DC 12/05 PO 12/05 1046 1157 Nifedipine 60 MG DAILY 12/04 1000 DCD PO Oxycodone HCl 15 MG Q4P PRN 12/02 1145 DCD 12/05 PO 1158 Oxycodone HCl 10 MG Q6 12/01 0600 DCD 12/04 PO 1825 Last 24 Hrs of Lab/Meet Results Last 24 Hrs of Labs/Mics: Laboratory Tests 12/05/16 0845: CBC w Diff NO MAN DIFF REQ, RBC 5.97 H, MCV 77.4 L, MCH 25.3 L, RDW 25.8 H, MPV 7.1 L, Gran % 71.3, Lymphocytes % 20.6, Monocytes % 5.3, Eosinophils % 2.5, Basophils % 0.3, Absolute Granulocytes 8.7 H, Absolute Lymphocytes 2.5, Absolute Monocytes 0.7 H, Absolute Eosinophils 0.3, Absolute Basophils 0, PUBS MCHC 32.7 L Assessment/Plan Assessment: Assessment 41 y lady with PMH of pituitary tumor s/p resection, HTN,DM, SVT s/p ablation, CAD s/p cardiac cath, COPD, bronchitis, chronic back pain and anxiety who was admitted with CC of dizziness and high blood pressure . On admission the Patient reported that she was doing her routine work when she noticed dizziness and when she checked her blood pressure it was higher than her baseline blood pressure( SBP 150mmHg). She denied any chest pain, nausea, vomiting, vision changes, headaches, abdominal pain, loss of consciousness, numbness, weakness and dysuria. She also reported that she has H/O headaches two days back that was intermittent and also having H/O chest pain intermittently for which she went to ED twice in last couple of days. She has H/O of back pain taht's 5/10, sharp apin and 8/10 on touching or movement. Patient is stating that she has ear pain and a probable ear infection due to her recent tooth pull as well as a sinus infection. She has chronic nasal drip. Patient is secondary to go for today. Plan # Hypertensive urgency: -Blood pressure is now 142/70 stable -This patient has chest discomfort that is beyond her baseline and, considering her risk factors, should be risk stratified with a pharmacologic stress test. - The patient, at present, refuses a stress test however. -Risk factor management should be pursued including smoking cessation, weight loss with optimization of her lipid profile, good control of blood glucose and control of blood pressure. -will Obtain an echocardiogram to look for overall EF, regional wall motion abnormalities and myocardial thickening. -Continue aspirin and a statin. Continue her current dose of beta arpit. Increase Lisinopril to 40mg BID. DC amlodipine and begin Nifedipine ER 30mg daily. Continue her diuretic. -This patient is severely hypertensive on multiple medications, We should look for secondary causes of hypertension including renal artery stenosis. Obtain a renal artery ultrasound. -Low calorie and low sodium diet. Patient is refusing to take Procardia 60 mg on discharge, we'll give her 30 mg instead. ? Hypogonadotrophic hypogonadism -She has had pituitary tumor removed in 2008 and hasn't been on the hormone replacement. - am cortisol 4.9, ACTH pending; - LH 1.9 and Estradiol 21.5--consistent with hypogonadotrophic hypogonadism. - TSH 1.66, free T4 1.00-- normal TFT -prolactin 14.4; -IGF-1 pending -Patient had a cortisol stimulation test done yesterday morning. So far the cortisol level at one half hour is 21.9 and then 25.9 at one hour. This is a normal test. -As above the patient has hypogonadotrophic hypogonadism but she is also on chronic pain medicine can cause this disorder. Therefore it is difficult to discern whether her lack of estrogen is due to resection of the pituitary tumor versus chronic narcotic pain medicine which can suppress the pituitary gonadal axis. -Repeat MRI on outpatient -Patient will follow up endocrine labs outpatient #BACK PAIN: continue oxycodone follow painn score #ANXIETY: continue alprazolam #Questionable sinus infection She is requesting Zithromax. She was given 500 Zithromax to began and 250 mg or 5 days thereafter she is currently on day 2. Discharge her with 3 days of Zithromax. DVT PROPHYLAXIS: mechanical and heparin CODE STATUS: full code Problem List: 1. History of supraventricular tachycardia 2. Diabetes mellitus 3. Chronic pain 4. Chronic back pain 5. Hypertensive urgency 6. Hypertension Pain Ratin Pain Location: None Pain Goal: Remain pain free Pain Plan: None Tomorrow's Labs & Rationales: None Consulting Request: Consulting Specialty: Endocrinology
== END 2016-12-05 12:23 | DRG 199 ==
LOC: ERH 20:17 → 1NO 12-01 00:02 → ERHI 12-01 00:02 → ENRESERV 12-01 00:35 → 1NO 12-01 01:27 → ENPENDDIS 12-05 09:24 → 1NO 12-05 12:23
PROVIDERS: Emergency Medicine; Internal Medicine; Student in an Organized Health Care Education/Training Program; ADMIT Internal Medicine
DX: I10 Essential (primary) hypertension (principal); F17.210 Nicotine dependence, cigarettes, uncomplicated; M54.9 Dorsalgia, unspecified; E78.5 Hyperlipidemia, unspecified; J44.9 Chronic obstructive pulmonary disease, unspecified; E11.9 Type 2 diabetes mellitus without complications; F41.9 Anxiety disorder, unspecified; E66.01 Morbid (severe) obesity due to excess calories; Z68.41 Body mass index [BMI] 40.0-44.9, adult; I25.10 Atherosclerotic heart disease of native coronary artery without angina pectoris
CPT/HCPCS: 1NP; 36415; 80307; 81001; 81025; 82436; 82670; 93005; 93010; 96374; 96375; 99291; J0360; J0456; J0834; J1644; J3490; J7508